=== PATIENT | female | born 1980 | race American Indian/Alaskan Native ===

== ENCOUNTER 2017-08-16 13:19 | Emergency (ER) | payer MEDICAID ==
[2017-08-16] MEDS ORDERED: TORADOL IM ONE (15:45)
--- NOTE | 2017-08-16 15:45 | Emergency Department Report ---
Blank Doc - Documentation Documentation: Patient is a 37-year-old female who is presenting with pain in her back , arms and legs mostly on the right side has been present for approximately a week. Patient states has been no trauma. Patient saw a neurologist who stated that he didn't know what her pain was coming from she has a history of migraines but is not having any headaches currently. Discussed with patient that we would check some basic lab studies as well as a CK that most likely she'll have to see a primary care physician to be tested for lupus and other inflammatory conditions
[2017-08-16 16:25] LABS: Bacteria,Urine 1+ /HPF (Negative); Bilirubin,Urine NEG (Negative); Blood,Urine NEG (Negative); Color,Urine Yellow (Yellow); HCG Qualitative,Urine Negative (Negative); Mucus,Urine 3+ /HPF; Protein,Urine <15 mg/dL mg/dL (Negative)
[2017-08-16 16:29] LABS: BUN/Creatinine Ratio 13; Basophils % (Auto) 1.1 % (0.0-1.8); Blood Urea Nitrogen 8 mg/dL (7-17); Calcium 8.8 mg/dL (8.4-10.2); Eosinophils # (Auto) 0.1 K/mm3 (0.0-0.4); Eosinophils % (Auto) 2.6 % (0.0-4.3); Hematocrit 37.9 % (30.3-42.9); Hemoglobin 12.4 gm/dl (10.1-14.3); Hemolysis Index 5; Lymphocytes # (Auto) 1.2 K/mm3 (1.2-5.4); Lymphocytes % (Auto) 31.4 % (13.4-35.0); Mean Corpuscular HGB Conc 33 % (30-34); Mean Corpuscular Hemoglobin 30 pg (28-32); Mean Corpuscular Volume 93 fl (79-97); Monocytes # (Auto) 0.3 K/mm3 (0.0-0.8); Monocytes % (Auto) 6.6 % (0.0-7.3); Platelet Count 186 K/mm3 (140-440); Red Blood Count 4.09 M/mm3 (3.65-5.03)
[2017-08-16] MEDS ORDERED: ZOFRAN ODT PO ONE (16:58)
[2017-08-16] MEDS ORDERED: ZOFRAN ODT ONE (17:00)
--- NOTE | 2017-08-16 17:24 | Cat Scan Report ---
FINAL REPORT PROCEDURE: CT HEAD/BRAIN WO CON TECHNIQUE: Computerized tomography of the head was performed without contrast material. DLP 1147.33 mGy-cm. HISTORY: Headache. COMPARISON: No prior studies are available for comparison. FINDINGS: Skull and scalp: Normal. Paranasal sinuses: Normal. Ventricles and subarachnoid spaces: Normal. Cerebrum: No evidence of hemorrhage, acute infarction or mass . Cerebellum and brainstem: No evidence of hemorrhage, acute infarction or mass. Vasculature: Normal. Comments: None. IMPRESSION: No CT evidence of acute intracranial pathology.
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
--- NOTE | 2017-08-16 19:06 | XRay Report ---
FINAL REPORT PROCEDURE: XR SPINE LUMBOSACRAL 2-3V TECHNIQUE: Lumbar spine radiographs, frontal and lateral views. CPT 27597 HISTORY: Back pain. COMPARISON: No prior studies are available for comparison. FINDINGS: Alignment: Normal. Mild levoscoliosis. Vertebral body heights/Disk spaces: Normal. Small osteophytes and disc space narrowing in the visualized thoracic spine. Fracture(s): None . Facets: Normal . Bone mineralization: Normal . Other: Possible partially visualized right nipple piercing. IMPRESSION: No radiographic evidence of acute abnormality. Mild degenerative change.
[2017-08-17 00:03] VITALS: BP 159/89
== END 2017-08-16 20:00 | disposition home or self-care (01) ==
LOC: ED 13:19
DX: M54.16 Radiculopathy, lumbar region (principal); Z79.82 Long term (current) use of aspirin; I10 Essential (primary) hypertension
CPT/HCPCS: 36415; 70450; 72100; 80048; 81001; 81025; 82550; 85025; 96372; 99284; J1885; Q0162

== ENCOUNTER 2018-09-03 11:41 | Emergency (ER) | payer MEDICAID ==
[2018-09-03] MEDS ORDERED: ASPIRIN PO ONE (11:53)
--- NOTE | 2018-09-03 11:57 | Emergency Department Report ---
Chief Complaint: Chest Pain Stated Complaint: SOB/CHEST PAIN Time Seen by Provider: 09/03/18 11:46 - HPI History of Present Illness: This is a 38 y.o. female that reports left sided chest pain and tingling to fingers for a few hours. cc: left sided chest pain radiating to LUE, and tingling to fingers. - ROS Review of Systems: left sided chest pain. - Exam Vital Signs: Vital Signs 09/03/18 11:53 Temperature 97.9 F Pulse Rate 78 Respiratory 20 Rate Blood Pressure 175/103 O2 Sat by Pulse 100 Oximetry MSE screening note: Focused history and physical exam performed. Due to findings the following was ordered: labs and CXR. ED Disposition for MSE Condition: Stable
[2018-09-03 12:57] LABS: Basophils % (Auto) 1.4 % (0.0-1.8); Eosinophils # (Auto) 0.1 K/mm3 (0.0-0.4); Eosinophils % (Auto) 2.4 % (0.0-4.3); Hematocrit 39.8 % (30.3-42.9); Hemoglobin 13.8 gm/dl (10.1-14.3); Lymphocytes # (Auto) 1.5 K/mm3 (1.2-5.4); Lymphocytes % (Auto) 44.8 % (13.4-35.0); Mean Corpuscular HGB Conc 35 % (30-34); Mean Corpuscular Volume 98 fl (79-97); Monocytes # (Auto) 0.2 K/mm3 (0.0-0.8); Platelet Count 202 K/mm3 (140-440); Red Blood Count 4.06 M/mm3 (3.65-5.03); Red Cell Distribution Width 13.5 % (13.2-15.2)
[2018-09-03 13:13] LABS: BUN/Creatinine Ratio 13; Blood Urea Nitrogen 9 mg/dL (7-17); Calcium 9.1 mg/dL (8.4-10.2); Hemolysis Index 9
--- NOTE | 2018-09-03 13:57 | XRay Report ---
AP CHEST: HISTORY: chest pain AP view of the chest demonstrates a normal mediastinal and cardiac contour with clear lungs and normal bony and soft tissue structures. IMPRESSION: Unremarkable AP chest.
[2018-09-03] MEDS ORDERED: IBUPROFEN PO ONE (14:02)
--- NOTE | 2018-09-03 14:05 | Emergency Department Report ---
ED General Adult HPI - General Chief complaint: Chest Pain Stated complaint: SOB/CHEST PAIN Time Seen by Provider: 09/03/18 11:46 Source: patient Mode of arrival: Ambulatory Limitations: No Limitations - History of Present Illness Initial comments: Patient is a 38-year-old Female who is presenting with chest discomfort. Patient states that early this morning she began having sharp pain in the left chest. Patient also has a headache as well. Patient has bilateral numbness to both her hands, left greater than right. Patient states that she chronically for the last month has had body aches mostly in her shoulders and back. The patient states even Sunday she is unable to stand straight up secondary to pain. Patient saw a neurologist and was told that she did not have any neurological issues. Patient has not seen cardiology or primary care. The patient states that the pain in the chest is with worse with breathing and with movement. Severity scale (0 -10): 8 - Related Data Previous Rx's Medication Instructions Recorded Last Taken Type Aspirin EC [Aspirin Enteric Coated 325 mg PO QDAY #30 tablet 05/20/15 Unknown Rx TAB] hydroCHLOROthiazide [Hctz] 12.5 mg PO QDAY #30 capsule 05/20/15 Unknown Rx Cyclobenzaprine [Flexeril] 10 mg PO BID PRN #10 tablet 08/16/17 Unknown Rx Ibuprofen [Motrin] 600 mg PO Q8H PRN #30 tablet 08/16/17 Unknown Rx methOCARBAMOL [Robaxin TAB] 500 mg PO Q6H PRN #15 tablet 09/03/18 Unknown Rx predniSONE [Deltasone] 10 mg PO .TAPER #21 tab 09/03/18 Unknown Rx traMADol [Ultram] 50 mg PO Q6HR PRN #15 tablet 09/03/18 Unknown Rx Allergies Allergy/AdvReac Type Severity Reaction Status Date / Time No Known Allergies Allergy Verified 08/16/17 13:40 ED Review of Systems ROS: Stated complaint: SOB/CHEST PAIN Other details as noted in HPI Comment: All other systems reviewed and negative ED Past Medical Hx - Past Medical History Previous Medical History?: Yes Hx Hypertension: Yes (PIH with second ) Additional medical history: Fibroids - Surgical History Past Surgical History?: Yes Additional Surgical History: fibroid. left knee - Social History Smoking Status: Current Every Day Smoker Substance Use Type: None - Medications Home Medications: Home Medications Medication Instructions Recorded Confirmed Last Taken Type Aspirin EC [Aspirin Enteric Coated 325 mg PO QDAY #30 tablet 05/20/15 Unknown Rx TAB] hydroCHLOROthiazide [Hctz] 12.5 mg PO QDAY #30 capsule 05/20/15 Unknown Rx Cyclobenzaprine [Flexeril] 10 mg PO BID PRN #10 tablet 08/16/17 Unknown Rx Ibuprofen [Motrin] 600 mg PO Q8H PRN #30 tablet 08/16/17 Unknown Rx methOCARBAMOL [Robaxin TAB] 500 mg PO Q6H PRN #15 tablet 09/03/18 Unknown Rx predniSONE [Deltasone] 10 mg PO .TAPER #21 tab 09/03/18 Unknown Rx traMADol [Ultram] 50 mg PO Q6HR PRN #15 tablet 09/03/18 Unknown Rx ED Physical Exam - General Limitations: No Limitations General appearance: alert, in no apparent distress - Head Head exam: Present: atraumatic, normocephalic - Eye Eye exam: Present: normal appearance - ENT ENT exam: Present: mucous membranes moist - Neck Neck exam: Present: normal inspection - Respiratory Respiratory exam: Present: normal lung sounds bilaterally, chest wall tenderness. Absent: respiratory distress, wheezes, rales, rhonchi, stridor - Cardiovascular Cardiovascular Exam: Present: regular rate, normal rhythm, normal heart sounds. Absent: systolic murmur, diastolic murmur, rubs, gallop - GI/Abdominal GI/Abdominal exam: Present: soft, normal bowel sounds. Absent: distended, tenderness, guarding, rebound, rigid - Extremities Exam Extremities exam: Present: normal inspection - Back Exam Back exam: Present: normal inspection - Neurological Exam Neurological exam: Present: alert, oriented X3 - Psychiatric Psychiatric exam: Present: normal affect, normal mood - Skin Skin exam: Present: warm, dry, intact, normal color. Absent: rash ED Course Vital Signs 09/03/18 09/03/18 11:53 14:44 Temperature 97.9 F Pulse Rate 78 Respiratory 20 16 Rate Blood Pressure 175/103 O2 Sat by Pulse 100 Oximetry ED Medical Decision Making - Lab Data Result diagrams: 09/03/18 12:31 09/03/18 12:31 Lab Results 09/03/18 09/03/18 09/03/18 Range/Units 12:31 12:31 12:31 WBC 3.3 L (4.5-11.0) K/mm3 RBC 4.06 (3.65-5.03) M/mm3 Hgb 13.8 (10.1-14.3) gm/dl Hct 39.8 (30.3-42.9) % MCV 98 H (79-97) fl MCH 34 H (28-32) pg MCHC 35 H (30-34) % RDW 13.5 (13.2-15.2) % Plt Count 202 (140-440) K/mm3 Lymph % (Auto) 44.8 H (13.4-35.0) % [place] % (Auto) 7.0 (0.0-7.3) % Eos % (Auto) 2.4 (0.0-4.3) % Baso % (Auto) 1.4 (0.0-1.8) % Lymph # 1.5 (1.2-5.4) K/mm3 [place] # 0.2 (0.0-0.8) K/mm3 Eos # 0.1 (0.0-0.4) K/mm3 Baso # 0.0 (0.0-0.1) K/mm3 Seg Neutrophils % 44.4 (40.0-70.0) % Seg Neutrophils # 1.5 L (1.8-7.7) K/mm3 D-Dimer (0-234) ng/mlDDU Sodium 138 (137-145) mmol/L Potassium 4.4 (3.6-5.0) mmol/L Chloride 103.7 (98-107) mmol/L Carbon Dioxide 25 (22-30) mmol/L Anion Gap 14 mmol/L BUN 9 (7-17) mg/dL Creatinine 0.7 (0.7-1.2) mg/dL Estimated GFR > 60 ml/min BUN/Creatinine Ratio 13 % Glucose 97 (65-100) mg/dL Calcium 9.1 (8.4-10.2) mg/dL Troponin T < 0.010 (0.00-0.029) ng/mL HCG, Qual Negative (Negative) 09/03/18 09/03/18 Range/Units 14:14 14:14 WBC (4.5-11.0) K/mm3 RBC (3.65-5.03) M/mm3 Hgb (10.1-14.3) gm/dl Hct (30.3-42.9) % MCV (79-97) fl MCH (28-32) pg MCHC (30-34) % RDW (13.2-15.2) % Plt Count (140-440) K/mm3 Lymph % (Auto) (13.4-35.0) % [place] % (Auto) (0.0-7.3) % Eos % (Auto) (0.0-4.3) % Baso % (Auto) (0.0-1.8) % Lymph # (1.2-5.4) K/mm3 [place] # (0.0-0.8) K/mm3 Eos # (0.0-0.4) K/mm3 Baso # (0.0-0.1) K/mm3 Seg Neutrophils % (40.0-70.0) % Seg Neutrophils # (1.8-7.7) K/mm3 D-Dimer < 135.0 (0-234) ng/mlDDU Sodium (137-145) mmol/L Potassium (3.6-5.0) mmol/L Chloride (98-107) mmol/L Carbon Dioxide (22-30) mmol/L Anion Gap mmol/L BUN (7-17) mg/dL Creatinine (0.7-1.2) mg/dL Estimated GFR ml/min BUN/Creatinine Ratio % Glucose (65-100) mg/dL Calcium (8.4-10.2) mg/dL Troponin T < 0.010 (0.00-0.029) ng/mL HCG, Qual (Negative) - EKG Data -: EKG Interpreted by Ne EKG shows normal: sinus rhythm, axis, intervals, QRS complexes, ST-T waves Rate: normal - EKG Data Interpretation: normal EKG - Radiology Data Radiology results: report reviewed (CXR WNL) - Medical Decision Making Patient to be discharged home with follow-up primary care. Patient needs a full panel assessment for lupus and other autoimmune diseases that may be causing her chronic pain syndrome. Patient discharged home with metastases symptomatic relief. Critical care attestation.: If time is entered above; I have spent that time in minutes in the direct care of this critically ill patient, excluding procedure time. ED Disposition Clinical Impression: Myalgia, Atypical chest pain Disposition: TO HOME OR SELFCARE Is pt being admited?: No Does the pt Need Aspirin: No Condition: Stable Instructions: Musculoskeletal Pain (ED) Additional Instructions: Please have your primary care physician order labs for lupus and other autoimmune diseases Referrals: JADA MOONEY MD [Primary Care Provider] - 3-5 Days AMOR MARIA MD [Staff Physician] - 3-5 Days Time of Disposition: 15:26
[2018-09-03 16:27] VITALS: BP 142/92
== END 2018-09-03 16:26 | disposition home or self-care (01) ==
LOC: ED 11:41
DX: R07.89 Other chest pain (principal); M79.18 Myalgia, other site; I10 Essential (primary) hypertension; F17.200 Nicotine dependence, unspecified, uncomplicated
CPT/HCPCS: 36415; 71045; 80048; 84484; 84703; 85025; 85379; 93005; 93010

== ENCOUNTER 2019-04-30 11:59 | Emergency (ER) | payer MEDICAID ==
--- NOTE | 2019-04-30 12:12 | Emergency Department Report ---
Blank Doc - Documentation Documentation: 39-year-old female that presents with CP and SOB. This initial assessment/diagnostic orders/clinical plan/treatment(s) is/are subject to change based on patient's health status, clinical progression and re- assessment by fellow clinical providers in the ED. Further treatment and workup at subsequent clinical providers discretion. Patient/guardians urged not to elope from the ED as their condition may be serious if not clinically assessed and managed. Initial orders include: 1- Patient sent to [facility] for further evaluation and treatment 2- labs 3- CXR 4- EKG
[2019-04-30 13:31] LABS: Basophils % (Auto) 0.3 % (0.0-1.8); Eosinophils # (Auto) 0.1 K/mm3 (0.0-0.4); Eosinophils % (Auto) 1.9 % (0.0-4.3); Hematocrit 43.8 % (30.3-42.9); Hemoglobin 15.1 gm/dl (10.1-14.3); Lymphocytes # (Auto) 1.3 K/mm3 (1.2-5.4); Lymphocytes % (Auto) 37.5 % (13.4-35.0); Mean Corpuscular HGB Conc 35 % (30-34); Mean Corpuscular Volume 98 fl (79-97); Monocytes # (Auto) 0.2 K/mm3 (0.0-0.8); Monocytes % (Auto) 4.6 % (0.0-7.3); Platelet Count 210 K/mm3 (140-440); Red Blood Count 4.47 M/mm3 (3.65-5.03); Red Cell Distribution Width 13.3 % (13.2-15.2)
[2019-04-30 14:05] LABS: BUN/Creatinine Ratio 11; Blood Urea Nitrogen 9 mg/dL (7-17); Calcium 9.4 mg/dL (8.4-10.2); Hemolysis Index 20
--- NOTE | 2019-04-30 14:10 | XRay Report ---
CHEST 2 VIEWS INDICATION: Chest pain and coughing for 5 days. COMPARISON: 09/03/2018 FINDINGS: Support devices: None. Heart: Within normal limits. Lungs/pleura: No acute air space or interstitial disease. No pneumothorax. Additional findings: Nipple piercings are noted. IMPRESSION: Normal chest x-ray. Signer Name: Roger Floyd Jr, MD Signed: 04/30/2019 2:06 PM Workstation Name: [id number]
--- NOTE | 2019-04-30 15:31 | Cat Scan Report ---
CT HEAD WITHOUT CONTRAST INDICATION / CLINICAL INFORMATION: dizziness, headache. TECHNIQUE: Axial imaging performed from the skull apex through the skull base without the use of cont rast. Sagittal and coronal reformatted images. All CT scans at this location are performed using CT dose reduction for ALARA by means of automated exposure control. COMPARISON: None available. FINDINGS: CEREBRAL PARENCHYMA: No significant abnormality. No acute territorial infarct. HEMORRHAGE: None. EXTRA-AXIAL SPACES: Normal in size and morphology for the patient's age. VENTRICULAR SYSTEM: Normal in size and morphology for the patient's age. MIDLINE SHIFT OR HERNIATION: None. CEREBELLUM / BRAINSTEM: No significant abnormality. CALVARIUM: No significant abnormality. ORBITS: Normal as visualized. PARANASAL SINUSES / MASTOID AIR CELLS: Normal as visualized. SOFT TISSUES of HEAD: No significant abnormality. ADDITIONAL FINDINGS: None. IMPRESSION: No acute intracranial abnormality. Signer Name: Roger Floyd Jr, MD Signed: 04/30/2019 3:27 PM Workstation Name: [id number]
[2019-04-30] MEDS ORDERED: FAMOTIDINE 20 MG TAB PO ONE (15:52)
[2019-04-30] MEDS ORDERED: ACETAMINOPHEN 325 MG TAB PO ONE (15:52)
[2019-04-30] MEDS ORDERED: SUCRALFATE 1 GM/10 ML ORAL LIQD PO ONE (15:52)
--- NOTE | 2019-04-30 15:53 | Emergency Department Report ---
ED General Adult HPI - General Chief complaint: Dyspnea/Respdistress Stated complaint: SOB/DIZZINESS Time Seen by Provider: 04/30/19 12:10 Source: patient, RN notes reviewed Mode of arrival: Ambulatory Limitations: No Limitations - History of Present Illness Initial comments: During the history and physical examination, I am gyro mechanic and escorted by dagoberto Suh This is a 39-year-old female. This patient is not known to this provider previ ously. The patient had a cardiac catheterization at this hospital May 2015, which was negative for significant disease. The patient states that she does not have a primary care doctor locally. She states that she is not has not delivered her given within the past 6 weeks. She presents to the ER with a complaint of inability to take a "full deep breath." This has been going on for 1 day. She denies DVT and pulmonary embolism risk factors. She describes a sensation of dizziness which is described as her head feeling woozy, and lightheaded. However, she's not had any loss of consciousness. She currently does not have chest pain that radiates anywhere. She denies illegal drug use. She denies urinary symptoms. She denies additional complaints. 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 -: Gradual, hour(s) Location: chest Radiation: non-radiation Quality: aching Consistency: intermittent Improves with: none Worsens with: none - Related Data Previous Rx's Medication Instructions Recorded Last Taken Type Aspirin EC 325 mg PO QDAY #30 tablet 05/20/15 Unknown Rx hydroCHLOROthiazide [Hctz] 12.5 mg PO QDAY #30 capsule 05/20/15 Unknown Rx Cyclobenzaprine [Flexeril] 10 mg PO BID PRN #10 tablet 08/16/17 Unknown Rx Ibuprofen [Motrin] 600 mg PO Q8H PRN #30 tablet 08/16/17 Unknown Rx methOCARBAMOL [Robaxin TAB] 500 mg PO Q6H PRN #15 tablet 09/03/18 Unknown Rx predniSONE [Deltasone] 10 mg PO .TAPER #21 tab 09/03/18 Unknown Rx traMADoL [Ultram] 50 mg PO Q6HR PRN #15 tablet 09/03/18 Unknown Rx Allergies Allergy/AdvReac Type Severity Reaction Status Date / Time No Known Allergies Allergy Verified 03/01/18 13:40 ED Review of Systems ROS: Stated complaint: SOB/DIZZINESS Other details as noted in HPI Constitutional: denies: fever Eyes: denies: eye discharge, vision change ENT: denies: congestion Respiratory: denies: wheezing Cardiovascular: chest pain, palpitations, syncope (patient complains of near syncope, however, has not lost consciousness) Gastrointestinal: denies: nausea, vomiting Genitourinary: denies: dysuria Musculoskeletal: denies: back pain Skin: denies: lesions Neurological: weakness Psychiatric: anxiety Hematological/Lymphatic: denies: easy bleeding ED Past Medical Hx - Past Medical History Previous Medical History?: Yes Hx Hypertension: Yes (PIH with second ) Additional medical history: Fibroids - Surgical History Past Surgical History?: Yes Additional Surgical History: fibroid. left knee - Social History Smoking Status: Never Smoker Substance Use Type: None - Medications Home Medications: Home Medications Medication Instructions Recorded Confirmed Last Taken Type Aspirin EC 325 mg PO QDAY #30 tablet 05/20/15 Unknown Rx hydroCHLOROthiazide [Hctz] 12.5 mg PO QDAY #30 capsule 05/20/15 Unknown Rx Cyclobenzaprine [Flexeril] 10 mg PO BID PRN #10 tablet 08/16/17 Unknown Rx Ibuprofen [Motrin] 600 mg PO Q8H PRN #30 tablet 08/16/17 Unknown Rx methOCARBAMOL [Robaxin TAB] 500 mg PO Q6H PRN #15 tablet 09/03/18 Unknown Rx predniSONE [Deltasone] 10 mg PO .TAPER #21 tab 09/03/18 Unknown Rx traMADoL [Ultram] 50 mg PO Q6HR PRN #15 tablet 09/03/18 Unknown Rx ED Physical Exam - General Limitations: No Limitations General appearance: alert, in no apparent distress - Head Head exam: Present: atraumatic, normocephalic - Eye Eye exam: Present: normal appearance, EOMI, other (visual acuity intact to finger counting, color perception, reading at a close distance). Absent: nystagmus - ENT ENT exam: Present: normal exam, normal orophraynx, mucous membranes moist, normal external ear exam - Neck Neck exam: Present: normal inspection, full ROM. Absent: tenderness, meningismus - Respiratory Respiratory exam: Present: normal lung sounds bilaterally. Absent: respiratory distress - Cardiovascular Cardiovascular Exam: Present: regular rate, normal rhythm, normal heart sounds. Absent: bradycardia, tachycardia, irregular rhythm, systolic murmur, diastolic murmur, rubs, gallop - GI/Abdominal GI/Abdominal exam: Present: soft. Absent: distended, tenderness, guarding, rebound, rigid, pulsatile mass - Extremities Exam Extremities exam: Present: normal inspection, full ROM, other (2+ pulses noted in the bilateral upper, lower extremities. There is no long bone tenderness. Musculoskeletal compartments are soft. The pelvis is stable.). Absent: pedal edema, joint swelling, calf tenderness - Back Exam Back exam: Present: normal inspection. Absent: tenderness, CVA tenderness (R), CVA tenderness (L), paraspinal tenderness, vertebral tenderness - Neurological Exam Neurological exam: Present: alert, oriented X3, normal gait (there is no past- pointing. There is normal [id number]. There is normal gait. There is normal tandem gait. There is negative pronator drift.), other (there is no facial droop. The tongue is midline. Extraocular movements are intact bilaterally. P atient speaking in full complete sentences. Shoulder shrug is intact bilaterally. Hearing is grossly intact bilaterally. Visual acuity intact to finger counting and color perception at a close distance. 5/5 strength 4 extremities. Sensation intact to light touch in 4 extremities.). Absent: motor sensory deficit - Psychiatric Psychiatric exam: Present: anxious - Skin Skin exam: Present: warm, dry, intact, normal color. Absent: rash ED Course Vital Signs 04/30/19 04/30/19 04/30/19 12:14 13:28 14:45 Temperature 98.6 F Pulse Rate 76 67 Respiratory 18 20 Rate Blood Pressure 182/107 Blood Pressure 175/116 [Right] O2 Sat by Pulse 99 100 100 Oximetry 04/30/19 04/30/19 04/30/19 15:53 15:54 15:55 Temperature Pulse Rate 59 L 58 L 59 L Respiratory 14 11 L 9 L Rate Blood Pressure 177/99 177/99 Blood Pressure [Right] O2 Sat by Pulse 100 Oximetry 04/30/19 04/30/19 04/30/19 15:57 15:59 16:00 Temperature Pulse Rate 60 58 L 56 L Respiratory 12 11 L 11 L Rate Blood Pressure 177/99 177/99 168/102 Blood Pressure [Right] O2 Sat by Pulse 100 100 100 Oximetry 11/04/30/19 04/30/19 16:01 16:03 16:05 Temperature Pulse Rate 59 L 76 62 Respiratory 9 L 12 12 Rate Blood Pressure 168/102 168/102 168/102 Blood Pressure [Right] O2 Sat by Pulse 100 100 100 Oximetry 04/30/19 04/30/19 04/30/19 16:07 16:09 16:11 Temperature Pulse Rate 67 61 62 Respiratory 10 L 12 13 Rate Blood Pressure 168/102 168/102 168/102 Blood Pressure [Right] O2 Sat by Pulse 100 100 99 Oximetry 04/30/19 04/30/19 04/30/19 16:13 16:15 16:17 Temperature Pulse Rate 65 62 61 Respiratory 16 16 15 Rate Blood Pressure 168/102 168/102 168/102 Blood Pressure [Right] O2 Sat by Pulse 99 100 100 Oximetry 04/30/19 04/30/19 04/30/19 16:19 16:21 16:23 Temperature Pulse Rate 56 L 57 L 60 Respiratory 13 15 12 Rate Blood Pressure 168/102 168/102 168/102 Blood Pressure [Right] O2 Sat by Pulse 100 100 100 Oximetry 04/30/19 04/30/19 04/30/19 16:25 16:27 16:29 Temperature Pulse Rate 57 L 64 60 Respiratory 13 13 14 Rate Blood Pressure 168/102 168/102 168/102 Blood Pressure [Right] O2 Sat by Pulse 100 98 100 Oximetry 04/30/19 04/30/19 04/30/19 16:31 16:33 16:35 Temperature Pulse Rate 60 58 L 61 Respiratory 11 L 11 L 13 Rate Blood Pressure 168/102 168/102 168/102 Blood Pressure [Right] O2 Sat by Pulse 100 100 100 Oximetry 04/30/19 04/30/19 04/30/19 16:53 16:55 16:57 Temperature Pulse Rate 83 62 64 Respiratory 18 16 15 Rate Blood Pressure 168/102 168/102 168/102 Blood Pressure [Right] O2 Sat by Pulse 100 100 100 Oximetry 04/30/19 04/30/19 04/30/19 17:07 17:11 17:13 Temperature Pulse Rate 60 63 64 Respiratory 17 12 12 Rate Blood Pressure 178/101 182/100 183/111 Blood Pressure [Right] O2 Sat by Pulse 100 100 100 Oximetry - Reevaluation(s) Reevaluation #1: 04/30/19 17:23 Differential diagnosis, including but not limited to: Orthostasis, vagal event, structural cardiac disease, acute coronary syndrome, pneumonia, GERD, gastritis, hiatal hernia, pulmonary embolism Assessment and plan: 39-year-old female with no pulmonary embolism or DVT risk factors, low risk by well's criteria, perc negative, EKG unremarkable/unchanged 2, low risk for major adverse cardiac event as per the heart score, troponin negative 2, negative cardiac catheterization in 2015, with nonspecific pain with inspiration, and sensation of lightheadedness and dizziness. She is afebrile with reassuring vital signs with the exception of incidental elevated blood pressure. Please reference the [employer] clinical policy on hypertension which is not acutely symptomatically or decompensated. She is initially anxious during my evaluation, however currently, she is pleasant, calm and cooperative, and noted to be playing with a cellular phone in her room. This [facility] has a policy whereby patients who are at low risk for major adverse cardiac event may obtain an expedited outpatient follow-up with our local cardiology practices. All of her laboratory studies are unremarkable, however, a d-dimer was sent and is pending at this time. Reevaluation #2: 04/30/19 17:26 Troponin negative 2. D-dimer negative. EKG unchanged 2. Vital signs remained fairly unremarkable. Patient medically suitable to follow-up as an outpatient. ED Medical Decision Making - Lab Data Result diagrams: 04/30/19 12:51 04/30/19 12:51 Vital Signs 04/30/19 04/30/19 04/30/19 12:14 13:28 14:45 Temperature 98.6 F Pulse Rate 76 67 Respiratory 18 20 Rate Blood Pressure 182/107 Blood Pressure 175/116 [Right] O2 Sat by Pulse 99 100 100 Oximetry 04/30/19 04/30/19 04/30/19 15:53 15:54 15:55 Temperature Pulse Rate 59 L 58 L 59 L Respiratory 14 11 L 9 L Rate Blood Pressure 177/99 177/99 Blood Pressure [Right] O2 Sat by Pulse 100 Oximetry 04/30/19 04/30/19 04/30/19 15:57 15:59 16:00 Temperature Pulse Rate 60 58 L 56 L Respiratory 12 11 L 11 L Rate Blood Pressure 177/99 177/99 168/102 Blood Pressure [Right] O2 Sat by Pulse 100 100 100 Oximetry 04/30/19 04/30/19 04/30/19 16:01 16:03 16:05 Temperature Pulse Rate 59 L 76 62 Respiratory 9 L 12 12 Rate Blood Pressure 168/102 168/102 168/102 Blood Pressure [Right] O2 Sat by Pulse 100 100 100 Oximetry 04/30/19 04/30/19 04/30/19 16:07 16:09 16:11 Temperature Pulse Rate 67 61 62 Respiratory 10 L 12 13 Rate Blood Pressure 168/102 168/102 168/102 Blood Pressure [Right] O2 Sat by Pulse 100 100 99 Oximetry 04/30/19 04/30/19 04/30/19 16:13 16:15 16:17 Temperature Pulse Rate 65 62 61 Respiratory 16 16 15 Rate Blood Pressure 168/102 168/102 168/102 Blood Pressure [Right] O2 Sat by Pulse 99 100 100 Oximetry 04/30/19 04/30/19 04/30/19 16:19 16:21 16:23 Temperature Pulse Rate 56 L 57 L 60 Respiratory 13 15 12 Rate Blood Pressure 168/102 168/102 168/102 Blood Pressure [Right] O2 Sat by Pulse 100 100 100 Oximetry 04/30/19 04/30/19 04/30/19 16:25 16:27 16:29 Temperature Pulse Rate 57 L 64 60 Respiratory 13 13 14 Rate Blood Pressure 168/102 168/102 168/102 Blood Pressure [Right] O2 Sat by Pulse 100 98 100 Oximetry 04/30/19 04/30/19 04/30/19 16:31 16:33 16:35 Temperature Pulse Rate 60 58 L 61 Respiratory 11 L 11 L 13 Rate Blood Pressure 168/102 168/102 168/102 Blood Pressure [Right] O2 Sat by Pulse 100 100 100 Oximetry 04/30/19 04/30/19 04/30/19 16:53 16:55 16:57 Temperature Pulse Rate 83 62 64 Respiratory 18 16 15 Rate Blood Pressure 168/102 168/102 168/102 Blood Pressure [Right] O2 Sat by Pulse 100 100 100 Oximetry 04/30/19 04/30/19 04/30/19 17:07 17:11 17:13 Temperature Pulse Rate 60 63 64 Respiratory 17 12 12 Rate Blood Pressure 178/101 182/100 183/111 Blood Pressure [Right] O2 Sat by Pulse 100 100 100 Oximetry Labs 04/30/19 04/30/1919 12:51 12:51 12:51 WBC 3.4 L RBC 4.47 Hgb 15.1 H Hct 43.8 H MCV 98 H MCH 34 H MCHC 35 H RDW 13.3 Plt Count 210 Lymph % (Auto) 37.5 H Atkinson % (Auto) 4.6 Eos % (Auto) 1.9 Baso % (Auto) 0.3 Lymph # 1.3 Atkinson # 0.2 Eos # 0.1 Baso # 0.0 Seg Neutrophils % 55.7 Seg Neutrophils # 1.9 D-Dimer Sodium 141 Potassium 3.9 Chloride 104.3 Carbon Dioxide 23 Anion Gap 18 BUN 9 Creatinine 0.8 Estimated GFR > 60 BUN/Creatinine Ratio 11 Glucose 118 H Calcium 9.4 Magnesium Total Creatine Kinase Troponin T < 0.010 HCG, Qual Negative 04/30/19 04/30/19 16:14 16:14 WBC RBC Hgb Hct MCV MCH MCHC RDW Plt Count Lymph % (Auto) Atkinson % (Auto) Eos % (Auto) Baso % (Auto) Lymph # Atkinson # Eos # Baso # Seg Neutrophils % Seg Neutrophils # D-Dimer < 135.00 Sodium Potassium Chloride Carbon Dioxide Anion Gap BUN Creatinine Estimated GFR BUN/Creatinine Ratio Glucose Calcium Magnesium 2.10 Total Creatine Kinase 226 H Troponin T < 0.010 HCG, Qual - EKG Data -: EKG Interpreted by Hi - EKG Data 04/30/19 17:26 EKG #1 shows a sinus rhythm, 62 beats for minute, normal axis, normal intervals, unremarkable EKG, borderline high left ventricular voltage, the EKG is not consistent with ST elevation myocardial infarction. EKG #2 was unchanged from prior. Neither EKG consistent with STEMI - Radiology Data Radiology results: report reviewed, image reviewed X-ray the chest is negative for acute disease. Noncontrast CT scan of the brain is negative for acute disease Critical care attestation.: If time is entered above; I have spent that time in minutes in the direct care of this critically ill patient, excluding procedure time. ED Disposition Clinical Impression: Elevated blood pressure reading, Chest discomfort Disposition: DC-01 TO HOME OR SELFCARE Is pt being admited?: No Does the pt Need Aspirin: No Condition: Stable Additional Instructions: Patient may take [id number] Tylenol, 650 mg with food, every 4 hours, alternating with Motrin, 600 mg with food, every 6 hours as needed for pain. Recommend following up with an outpatient medical device sales within the next 3-5 days. Recommend following up with an outpatient primary care doctor within the next week. Patient found to have slightly elevated blood pressure today, and this should be rechecked by either cardiology or primary care. In the meantime, recommend 7-8 hours of good-quality uninterrupted sleep each night, exercise and physical activity as tolerated, consumption of plenty of lean protein, fiber, vegetables, and avoidance of simple carbohydrates, sugary drinks, and fried foods. Return to the emergency room right away with new, worsened, different symptoms, or symptoms not present on the initial emergency room evaluation. Referrals: CLAUDETTE MORENO MD [Primary Care Provider] - 3-5 Days [facility] [Provider Group] - 3-5 Days FLAQUITO COREA MD [Staff Physician] - 3-5 Days
[2019-04-30 17:25] VITALS: BP 183/111
[2019-04-30 18:28] LABS: Bacteria,Urine 1+ /HPF (Negative); Bilirubin,Urine NEG (Negative); Blood,Urine SM (Negative); Color,Urine Yellow (Yellow); Mucus,Urine 3+ /HPF; Protein,Urine <15 mg/dL mg/dL (Negative)
[2019-04-30 18:46] LABS: Amphetamine Screen,Urine PRESUMPTIVE NEGATIVE; Benzodiazepines Screen,Urine PRESUMPTIVE NEGATIVE; Cocaine Screen,Urine PRESUMPTIVE NEGATIVE; Methadone Screen,Urine PRESUMPTIVE NEGATIVE; Opiate Screen,Urine PRESUMPTIVE NEGATIVE
[2019-04-30 19:01] LABS: Cannabinoid Screen,Urine PRESUMPTIVE POSITIVE
== END 2019-04-30 18:10 | disposition home or self-care (01) ==
LOC: ED 11:59
DX: I10 Essential (primary) hypertension (principal); R07.9 Chest pain, unspecified
CPT/HCPCS: 36415; 70450; 71046; 80048; 80307; 81001; 82550; 83735; 84484; 84703; 85025; 85379; 87086; 93005; 93010

== ENCOUNTER 2020-01-06 13:35 | Emergency (ER) | payer BC, MEDICAID ==
--- NOTE | 2020-01-06 15:31 | Event Note ---
ED Screening Note ED Screening Note: LLQ PAIN NAUSEA NO VOMITING NO DIARRHEA NO FEVER OR CHILLS HX OVARIAN CYST NO DC NOVAG BLEEDING PT WILL NOT WALK This initial assessment/diagnostic orders/clinical plan/treatment(s) is/are subject to change based on patients health status, clinical progression and re- assessment by fellow clinical providers in the ED. Further treatment and workup at subsequent clinical providers discretion. Patient/guardian urged not to elope from the ED as their condition may be serious if not clinically assessed and managed. Initial orders include: LABS UA
[2020-01-06 16:16] LABS: Bilirubin,Urine NEG (Negative); Blood,Urine MOD (Negative); Color,Urine Yellow (Yellow); Mucus,Urine FEW /HPF; Protein,Urine <15 mg/dL mg/dL (Negative); Urobilinogen,Urine < 2.0 mg/dL (<2.0); WBC,Urine < 1.0 /HPF (0.0-6.0)
[2020-01-06 16:21] LABS: HCG Qualitative,Urine Negative (Negative)
[2020-01-06 16:56] LABS: Hematocrit 44.1 % (30.3-42.9); Hemoglobin 14.6 gm/dl (10.1-14.3); Mean Corpuscular HGB Conc 33 % (30-34); Mean Corpuscular Volume 100 fl (79-97); Platelet Count 183 K/mm3 (140-440); Red Blood Count 4.42 M/mm3 (3.65-5.03); Red Cell Distribution Width 13.7 % (13.2-15.2)
[2020-01-06 17:11] LABS: Alanine Aminotransferase 87 units/L (7-56); Albumin 4.6 g/dL (3.9-5); BUN/Creatinine Ratio 14; Blood Urea Nitrogen 10 mg/dL (7-17); Calcium 9.1 mg/dL (8.4-10.2); Hemolysis Index 3
[2020-01-06] MEDS ORDERED: traMADol 50 MG TAB PO ONE (19:35)
--- NOTE | 2020-01-06 19:40 | Emergency Department Report ---
ED Abdominal Pain HPI - General Chief Complaint: Abdominal Pain Stated Complaint: ABD PAIN PUI?: No Time Seen by Provider: 01/06/20 14:31 Source: EMS Mode of arrival: Ambulatory Limitations: No Limitations - History of Present Illness Initial Comments: This is a 39-year-old female presents to the ED complaining of left lower pelvic pain that began today and worsened in intensity. Patient states last time she felt this pain was about 6 to 8 years ago. Patient states pain is localized to the left pelvic region. Patient noted that she started her last menstrual cycle yesterday. Patient states that pain is sharp and intermittent. She denies fever/chills/nausea vomiting/dysuria/vaginal discharge MD Complaint: abdominal pain -: Sudden Severity scale (0 -10): 10 - Related Data Previous Rx's Medication Instructions Recorded Last Taken Type Aspirin EC [Ecotrin] 325 mg PO QDAY #30 tablet 05/20/15 Unknown Rx hydroCHLOROthiazide [Hctz] 12.5 mg PO QDAY #30 capsule 05/20/15 Unknown Rx Cyclobenzaprine [Flexeril] 10 mg PO BID PRN #10 tablet 08/16/17 Unknown Rx Ibuprofen [Motrin] 600 mg PO Q8H PRN #30 tablet 08/16/17 Unknown Rx methOCARBAMOL [Robaxin TAB] 500 mg PO Q6H PRN #15 tablet 09/03/18 Unknown Rx predniSONE [Deltasone] 10 mg PO .TAPER #21 tab 09/03/18 Unknown Rx traMADoL [Ultram] 50 mg PO Q6HR PRN #15 tablet 09/03/18 Unknown Rx Acetaminophen/Codeine [Tylenol 1 tab PO Q6H PRN #10 tab 07/11/19 Unknown Rx /Codeine # 3 tab] Sulfamethoxazole/Trimethoprim 1 each PO BID 5 Days #10 tablet 07/11/19 Unknown Rx [Bactrim DS TAB] Ibuprofen [Motrin 800 MG tab] 800 mg PO Q8HR PRN #21 tablet 01/06/20 Unknown Rx traMADoL [Ultram 50 MG tab] 50 mg PO Q6H #20 tablet 01/06/20 Unknown Rx Allergies Allergy/AdvReac Type Severity Reaction Status Date / Time No Known Allergies Allergy Verified 01/06/20 14:31 ED Review of Systems ROS: Stated complaint: ABD PAIN Other details as noted in HPI Comment: All other systems reviewed and negative ED Past Medical Hx - Past Medical History Hx Hypertension: Yes (PIH with second ) Additional medical history: Fibroids - Surgical History Additional Surgical History: fibroid. left knee - Social History Smoking Status: Never Smoker Substance Use Type: None - Medications Home Medications: Home Medications Medication Instructions Recorded Confirmed Last Taken Type Aspirin EC [Ecotrin] 325 mg PO QDAY #30 tablet 05/20/15 Unknown Rx hydroCHLOROthiazide [Hctz] 12.5 mg PO QDAY #30 capsule 05/20/15 Unknown Rx Cyclobenzaprine [Flexeril] 10 mg PO BID PRN #10 tablet 08/16/17 Unknown Rx Ibuprofen [Motrin] 600 mg PO Q8H PRN #30 tablet 08/16/17 Unknown Rx methOCARBAMOL [Robaxin TAB] 500 mg PO Q6H PRN #15 tablet 09/03/18 Unknown Rx predniSONE [Deltasone] 10 mg PO .TAPER #21 tab 09/03/18 Unknown Rx traMADoL [Ultram] 50 mg PO Q6HR PRN #15 tablet 09/03/18 Unknown Rx Acetaminophen/Codeine [Tylenol 1 tab PO Q6H PRN #10 tab 07/11/19 Unknown Rx /Codeine # 3 tab] Sulfamethoxazole/Trimethoprim 1 each PO BID 5 Days #10 tablet 07/11/19 Unknown Rx [Bactrim DS TAB] Ibuprofen [Motrin 800 MG tab] 800 mg PO Q8HR PRN #21 tablet 01/06/20 Unknown Rx traMADoL [Ultram 50 MG tab] 50 mg PO Q6H #20 tablet 01/06/20 Unknown Rx ED Physical Exam - General Limitations: No Limitations General appearance: alert, in no apparent distress - Head Head exam: Present: atraumatic, normocephalic - Eye Eye exam: Present: normal appearance - ENT ENT exam: Present: mucous membranes moist - Neck Neck exam: Present: normal inspection - Respiratory Respiratory exam: Present: normal lung sounds bilaterally. Absent: respiratory distress - Cardiovascular Cardiovascular Exam: Present: regular rate, normal rhythm. Absent: systolic murmur, diastolic murmur, rubs, gallop - GI/Abdominal GI/Abdominal exam: Present: soft, tenderness (Mild tenderness to the left pelvic region, no upper abdominal tenderness), normal bowel sounds. Absent: guarding, rebound, mass - Extremities Exam Extremities exam: Present: normal inspection - Back Exam Back exam: Present: normal inspection - Neurological Exam Neurological exam: Present: alert, oriented X3 - Psychiatric Psychiatric exam: Present: normal affect, normal mood - Skin Skin exam: Present: warm, dry, intact, normal color. Absent: rash ED Course Vital Signs 01/06/20 01/06/20 14:35 15:32 Temperature 98.1 F Pulse Rate 58 L Respiratory 16 18 Rate Blood Pressure 150/91 [Left] O2 Sat by Pulse 100 99 Oximetry ED Medical Decision Making - Lab Data Result diagrams: 01/06/20 16:39 01/06/20 16:39 Laboratory Last Values WBC 3.9 K/mm3 (4.5-11.0) L 01/06/20 16:39 RBC 4.42 M/mm3 (3.65-5.03) 01/06/20 16:39 Hgb 14.6 gm/dl (10.1-14.3) H 01/06/20 16:39 Hct 44.1 % (30.3-42.9) H 01/06/20 16:39 MCV 100 fl (79-97) H 01/06/20 16:39 MCH 33 pg (28-32) H 01/06/20 16:39 MCHC 33 % (30-34) 01/06/20 16:39 RDW 13.7 % (13.2-15.2) 01/06/20 16:39 Plt Count 183 K/mm3 (140-440) 01/06/20 16:39 Sodium 138 mmol/L (137-145) 01/06/20 16:39 Potassium 3.8 mmol/L (3.6-5.0) 01/06/20 16:39 Chloride 102.8 mmol/L (98-107) 01/06/20 16:39 Carbon Dioxide 24 mmol/L (22-30) 01/06/20 16:39 Anion Gap 15 mmol/L 01/06/20 16:39 BUN 10 mg/dL (7-17) 01/06/20 16:39 Creatinine 0.7 mg/dL (0.7-1.2) 01/06/20 16:39 Estimated GFR > 60 ml/min 01/06/20 16:39 BUN/Creatinine Ratio 14 % 01/06/20 16:39 Glucose 111 mg/dL (65-100) H 01/06/20 16:39 Calcium 9.1 mg/dL (8.4-10.2) 01/06/20 16:39 Total Bilirubin 0.40 mg/dL (0.1-1.2) 01/06/20 16:39 AST 49 units/L (5-40) H 01/06/20 16:39 ALT 87 units/L (7-56) H 01/06/20 16:39 Alkaline Phosphatase 63 units/L (35-129) 01/06/20 16:39 Total Protein 7.3 g/dL (6.3-8.2) 01/06/20 16:39 Albumin 4.6 g/dL (3.9-5) 01/06/20 16:39 Albumin/Globulin Ratio 1.7 % 01/06/20 16:39 Lipase 15 units/L (13-60) 01/06/20 16:39 Urine Color Yellow (Yellow) 01/06/20 14:58 Urine Turbidity Clear (Clear) 01/06/20 14:58 Urine pH 7.0 (5.0-7.0) 01/06/20 14:58 Ur Specific [place] 1.014 (1.003-1.030) 01/06/20 14:58 Urine Protein <15 mg/dl mg/dL (Negative) 01/06/20 14:58 Urine Glucose (UA) Neg mg/dL (Negative) 01/06/20 14:58 Urine Ketones Neg mg/dL (Negative) 01/06/20 14:58 Urine Blood Mod (Negative) 01/06/20 14:58 Urine Nitrite Neg (Negative) 01/06/20 14:58 Urine Bilirubin Neg (Negative) 01/06/20 14:58 Urine Urobilinogen < 2.0 mg/dL (<2.0) 01/06/20 14:58 Ur Leukocyte Esterase Neg (Negative) 01/06/20 14:58 Urine WBC (Auto) < 1.0 /HPF (0.0-6.0) 01/06/20 14:58 Urine RBC (Auto) 6.0 /HPF (0.0-6.0) 01/06/20 14:58 U Epithel Cells (Auto) 3.0 /HPF (0-13.0) 01/06/20 14:58 Urine Mucus Few /HPF 01/06/20 14:58 Urine HCG, Qual Negative (Negative) 01/06/20 14:58 - Radiology Data Radiology results: report reviewed, image reviewed PELVIC ULTRASOUND HISTORY: Left pelvic pain. FINDINGS: Imaging was performed by transabdominally and endovaginally. The uterus measures 7.8 x 5.4 x 6.3 cm. Endometrial stripe measures 10.9 cm. 3 fibroids are present with the largest at the fundus anteriorly measuring 2.5 cm. Right ovary measures 2.9 x 2 x 2.2 cm. Left ovary measures 3.3 x 1.6 x 2.2 cm. Negative for adnexal mass or fluid. Ovaries demonstrate flow. IMPRESSION: 1. Prominent endometrial stripe. 2. 3 small uterine fibroids. Signer Name: John De La Cruz MD Signed: 01/06/2020 9:15 PM Workstation Name: [id number] Transcribed By: MOUNA Dictated By: John De La Cruz MD Electronically Authenticated By: John De La Cruz MD Signed Date/Time: 01/06/202114 - Medical Decision Making 39-year-old female presents with left-sided pelvic pain. Patient received tramadol for pain in the ED. All labs are within normal limits. Ultrasound report shows, see report above. Discussed with patient to follow-up with [facility]. Pain subsided prior to discharge. Vital signs are normal patient is in no acute distress. Critical care attestation.: If time is entered above; I have spent that time in minutes in the direct care of this critically ill patient, excluding procedure time. ED Disposition Clinical Impression: Uterine fibroid, Dysmenorrhea Disposition: TO HOME OR SELFCARE Is pt being admited?: No Does the pt Need Aspirin: No Condition: Stable Instructions: Abdominal Pain (ED), Uterine Fibroids (ED), Dysmenorrhea (ED), Chronic Pelvic Pain in Women (ED) Additional Instructions: Make sure to follow up with the primary care physician as discussed. Take all your medications as you've been prescribed. If you have any worsening symptoms or develop new symptoms please return to ED immediately. Prescriptions: Ibuprofen [Motrin 800 MG tab] 800 mg PO Q8HR PRN #21 tablet PRN Reason: pain traMADoL [Ultram 50 MG tab] 50 mg PO Q6H #20 tablet Referrals: PRIMARY CARE, [Primary Care Provider] - 3-5 Days [facility] [Outside] - 3-5 Days [facility] [Outside] - 3-5 Days [facility] [Provider Group] - 3-5 Days Forms: Work/School Release Form(ED) Time of Disposition: 21:31
--- NOTE | 2020-01-06 21:19 | Ultrasound Report ---
PELVIC ULTRASOUND HISTORY: Left pelvic pain. FINDINGS: Imaging was performed by transabdominally and endovaginally. The uterus measures 7.8 x 5.4 x 6.3 cm. Endometrial stripe measures 10.9 cm. 3 fibroids are present w ith the largest at the fundus anteriorly measuring 2.5 cm. Right ovary measures 2.9 x 2 x 2.2 cm. Left ovary measures 3.3 x 1.6 x 2.2 cm. Negative for adnexal m ass or fluid. Ovaries demonstrate flow. IMPRESSION: 1. Prominent endometrial stripe. 2. 3 small uterine fibroids. Signer Name: John De La Cruz MD Signed: 01/06/2020 9:15 PM Workstation Name: [id number]
[2020-01-06 21:42] VITALS: BP 149/85
== END 2020-01-06 21:41 | disposition home or self-care (01) ==
LOC: ED 13:35
DX: D25.9 Leiomyoma of uterus, unspecified (principal); N94.6 Dysmenorrhea, unspecified; I10 Essential (primary) hypertension; Z79.82 Long term (current) use of aspirin; Z79.899 Other long term (current) drug therapy; Z98.890 Other specified postprocedural states
CPT/HCPCS: 36415; 76830; 76856; 80053; 81001; 81025; 83690; 85027

== ENCOUNTER 2020-07-09 18:09 | Emergency (ER) | payer BC, MEDICAID ==
[2020-07-09 19:06] VITALS: BP 146/87
--- NOTE | 2020-07-09 19:09 | Emergency Department Report ---
ED General Adult HPI - General Chief complaint: Medical Clearance Stated complaint: NEEDS RHOGAM INJ; REFFERED Time Seen by Provider: 07/09/20 19:06 Source: patient Mode of arrival: Ambulatory Limitations: No Limitations - History of Present Illness Initial comments: 40-year-old -[place]aro[place] female patient presents for RhoGam shot today. Patient states she was sent by her [employer] for blood being found in her urine. She states her [employer] MANAGER is also treating her for a UTI. She denies any abdominal pain, vaginal bleeding, fever/chills/sweats, or other complaints. - Related Data Previous Rx's Medication Instructions Recorded Last Taken Type Aspirin EC [Ecotrin] 325 mg PO QDAY #30 tablet 05/20/15 Unknown Rx hydroCHLOROthiazide [Hctz] 12.5 mg PO QDAY #30 capsule 05/20/15 Unknown Rx Cyclobenzaprine [Flexeril] 10 mg PO BID PRN #10 tablet 08/16/17 Unknown Rx Ibuprofen [Motrin] 600 mg PO Q8H PRN #30 tablet 08/16/17 Unknown Rx methOCARBAMOL [Robaxin TAB] 500 mg PO Q6H PRN #15 tablet 09/03/18 Unknown Rx predniSONE 10 mg PO .TAPER #21 tab 09/03/18 Unknown Rx traMADoL [Ultram] 50 mg PO Q6HR PRN #15 tablet 09/03/18 Unknown Rx Acetaminophen/Codeine [Tylenol 1 tab PO Q6H PRN #10 tab 07/11/19 Unknown Rx /Codeine # 3 tab] Sulfamethoxazole/Trimethoprim 1 each PO BID 5 Days #10 tablet 07/11/19 Unknown Rx [Bactrim DS TAB] Ibuprofen [Motrin 800 MG tab] 800 mg PO Q8HR PRN #21 tablet 01/06/20 Unknown Rx traMADoL [Ultram 50 MG tab] 50 mg PO Q6H #20 tablet 01/06/20 Unknown Rx Allergies Allergy/AdvReac Type Severity Reaction Status Date / Time No Known Allergies Allergy Verified 01/06/20 14:31 ED Review of Systems ROS: Stated complaint: NEEDS RHOGAM INJ;MD REFFERED Other details as noted in HPI Constitutional: denies: chills, fever Respiratory: denies: shortness of breath Cardiovascular: denies: chest pain Gastrointestinal: denies: abdominal pain, nausea, vomiting Genitourinary: denies: urgency, abnormal menses Skin: denies: change in color Neurological: denies: headache Hematological/Lymphatic: denies: easy bleeding, easy bruising ED Past Medical Hx - Past Medical History Previous Medical History?: Yes Hx Hypertension: Yes (PIH with second ) Additional medical history: Fibroids - Surgical History Past Surgical History?: Yes Additional Surgical History: fibroid. left knee - Social History Smoking Status: Never Smoker Substance Use Type: None - Medications Home Medications: Home Medications Medication Instructions Recorded Confirmed Last Taken Type Aspirin EC [Ecotrin] 325 mg PO QDAY #30 tablet 05/20/15 Unknown Rx hydroCHLOROthiazide [Hctz] 12.5 mg PO QDAY #30 capsule 05/20/15 Unknown Rx Cyclobenzaprine [Flexeril] 10 mg PO BID PRN #10 tablet 08/16/17 Unknown Rx Ibuprofen [Motrin] 600 mg PO Q8H PRN #30 tablet 08/16/17 Unknown Rx methOCARBAMOL [Robaxin TAB] 500 mg PO Q6H PRN #15 tablet 09/03/18 Unknown Rx predniSONE 10 mg PO .TAPER #21 tab 09/03/18 Unknown Rx traMADoL [Ultram] 50 mg PO Q6HR PRN #15 tablet 09/03/18 Unknown Rx Acetaminophen/Codeine [Tylenol 1 tab PO Q6H PRN #10 tab 07/11/19 Unknown Rx /Codeine # 3 tab] Sulfamethoxazole/Trimethoprim 1 each PO BID 5 Days #10 tablet 07/11/19 Unknown Rx [Bactrim DS TAB] Ibuprofen [Motrin 800 MG tab] 800 mg PO Q8HR PRN #21 tablet 01/06/20 Unknown Rx traMADoL [Ultram 50 MG tab] 50 mg PO Q6H #20 tablet 01/06/20 Unknown Rx ED Physical Exam - General Limitations: No Limitations General appearance: alert, in no apparent distress - Head Head exam: Present: atraumatic, normocephalic - Eye Eye exam: Present: normal appearance - Respiratory Respiratory exam: Absent: respiratory distress - Cardiovascular Cardiovascular Exam: Present: regular rate - GI/Abdominal GI/Abdominal exam: Present: soft. Absent: distended, tenderness, guarding, rebound, rigid - Neurological Exam Neurological exam: Present: alert, oriented X3 - Psychiatric Psychiatric exam: Present: normal affect, normal mood - Skin Skin exam: Present: warm, dry, intact, normal color. Absent: rash ED Course Vital Signs 07/09/20 18:18 Temperature 97.9 F Pulse Rate 90 Respiratory 18 Rate Blood Pressure 146/87 O2 Sat by Pulse 100 Oximetry ED Medical Decision Making - Medical Decision Making 40-year-old -[place]aro[place] female patient presents for RhoGam shot today. Patient states she was sent by her [employer] for blood being found in her urine. She states her [employer]NAGER is also treating her for a UTI. She denies any abdominal pain, vaginal bleeding, fever/chills/sweats, or other complaints. RhoGam given. Patient's blood pressure noted to be mildly elevated recommend follow-up with [employer]GER within 1 week for recheck of blood pressure and further evaluation.-She is well-appearing stable for discharge home. Strict return precautions were discussed in detail with patient who verbalized understanding. Critical care attestation.: If time is entered above; I have spent that time in minutes in the direct care of this critically ill patient, excluding procedure time. ED Disposition Clinical Impression: Encounter for prophylactic administration of RhoGAM, Elevated blood pressure reading Disposition: DC-01 TO HOME OR SELFCARE Is pt being admited?: No Condition: Stable Instructions: Rh0 [D] Immune Globulin injection, Hypertension During Additional Instructions: Please follow up with your OBGYN Provider within 5 days for recheck of your blood pressure
== END 2020-07-09 21:17 | disposition home or self-care (01) ==
LOC: ED 18:09
DX: O23.42 Unspecified infection of urinary tract in pregnancy, second trimester (principal); I10 Essential (primary) hypertension; Z3A.19 19 weeks gestation of pregnancy; Z98.890 Other specified postprocedural states; Z79.1 Long term (current) use of non-steroidal anti-inflammatories (NSAID); Z79.899 Other long term (current) drug therapy
CPT/HCPCS: 86850; 86900; 86901; 96372; 99281; J2790

== ENCOUNTER 2020-10-07 17:31 | Outpatient (CLI) | payer BC, MEDICAID ==
[2020-10-07 18:46] VITALS: BP 128/83
[2020-10-07 19:55] LABS: Bilirubin,Urine NEG (Negative); Blood,Urine NEG (Negative); Color,Urine Yellow (Yellow); Protein,Urine <15 mg/dL mg/dL (Negative); Urobilinogen,Urine < 2.0 mg/dL (<2.0)
== END 2020-10-07 20:35 | disposition home or self-care (01) ==
LOC: TRG 17:31 → APU 17:32 → TRG 20:35
PROVIDERS: ATTEND Obstetrics & Gynecology
DX: Z34.93 Encounter for supervision of normal pregnancy, unspecified, third trimester (principal); Z3A.39 39 weeks gestation of pregnancy
CPT/HCPCS: 59025; 81001

== ENCOUNTER 2020-10-22 19:26 | Outpatient (CLI) | payer BC, MEDICAID ==
[2020-10-22] MEDS ORDERED: LACTATED RINGERS 500 ML IV ONE (19:41)
[2020-10-22 20:03] VITALS: BP 132/79
== END 2020-10-22 20:15 | disposition home or self-care (01) ==
LOC: TRG 19:26 → APU 19:34 → TRG 20:15
PROVIDERS: ATTEND Obstetrics & Gynecology
DX: O09.93 Supervision of high risk pregnancy, unspecified, third trimester (principal); Z3A.34 34 weeks gestation of pregnancy
CPT/HCPCS: 59025

== ENCOUNTER 2020-11-11 13:42 | Outpatient (CLI) | payer BC, MEDICAID ==
[2020-11-11 16:19] LABS: Hematocrit 30.8 % (30.3-42.9); Hemoglobin 10.9 gm/dl (10.1-14.3); Mean Corpuscular HGB Conc 35 % (30-34); Mean Corpuscular Volume 94 fl (79-97); Platelet Count 147 K/mm3 (140-440); Red Blood Count 3.27 M/mm3 (3.65-5.03)
[2020-11-11 16:32] LABS: Bacteria,Urine 2+ /HPF (Negative); Bilirubin,Urine NEG (Negative); Blood,Urine NEG (Negative); Color,Urine Yellow (Yellow); Mucus,Urine 3+ /HPF; Urobilinogen,Urine < 2.0 mg/dL (<2.0)
[2020-11-11 16:41] LABS: Alanine Aminotransferase 7 units/L (7-56); Uric Acid 5.1 mg/dL (3.5-7.6)
[2020-11-11 17:06] VITALS: BP 150/95
== END 2020-11-11 17:38 | disposition home or self-care (01) ==
LOC: TRG 13:42 → APU 13:45 → TRG 17:38
DX: O09.893 Supervision of other high risk pregnancies, third trimester (principal); Z3A.37 37 weeks gestation of pregnancy
CPT/HCPCS: 36415; 59025; 81001; 82565; 83615; 84450; 84460; 84550; 85027

== ENCOUNTER 2020-11-18 21:45 | Inpatient (IN) | payer BC, MEDICAID ==
[2020-11-18] MEDS ORDERED: LIDOCAINE (2%) 20 MG/1 ML VIAL 20 ML MDV INFILTRATI ONE (22:57)
[2020-11-18] MEDS ORDERED: TERBUTALINE 1 MG/1 ML INJ SUB-Q PRN (22:57)
[2020-11-18] MEDS ORDERED: ePHEDrine SULFATE 50 MG/1 ML INJ IV PRN (22:57)
[2020-11-18] MEDS ORDERED: MINERAL OIL 30 ML ORAL LIQD PO PRN (22:57)
[2020-11-18] MEDS ORDERED: BUTORPHANOL 2 MG/1 ML INJ IV PRN ×2 (22:57)
[2020-11-18] MEDS ORDERED: fentaNYL 100 MCG/2 ML INJ IV PRN (22:57)
[2020-11-18] MEDS ORDERED: OXYTOCIN DRIP 30 UNITS/500 ML BAG IV SCH (23:00)
--- NOTE | 2020-11-18 23:26 | History and Physical Report ---
History of Present Illness Date of examination: 11/18/20 Date of admission: 11/18/20 21:45 Chief complaint: "My doctor told me to come to be induced" History of present illness: 40 y/o presents to [facility] @ 38.4 wks for an IOL r/t CHTN. Pt denies VB, UC, LOF, and admits to active FM. She initiated her pnc @ [facility] [place] location @ 8.6 wks. 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 She was comanaged by [facility], and has been noncomplaint with her b/p meds. Surgical hx includes D&C and a tonsillectomy. Family hx of htn and cervical cancer. Her GBS is neg. Past History Past Medical History: hypertension, other (fibroids, AMA, CHTN, polydramnios, rh neg, unilat hydrocele, ) Past Surgical History: tonsillectomy, D&C [employer] History: herpes Family/Genetic History: hypertension, cancer Social history: single, full code - Obstetrical History Expected Date of Delivery: 11/28/20 Actual Gestation: 38 Week(s) 4 Day(s) : 4 Para: 2 Hx # Term Pregnancies: 2 Spontaneous Abortions: 0 Induced : 1 Number of Living Children: 2 Medications and Allergies Allergies Allergy/AdvReac Type Severity Reaction Status Date / Time No Known Allergies Allergy Verified 01/06/20 14:31 Home Medications Medication Instructions Recorded Confirmed Last Taken Type Aspirin EC [Ecotrin] 325 mg PO QDAY #30 tablet 05/20/15 10/07/20 Unknown Rx hydroCHLOROthiazide [Hctz] 12.5 mg PO QDAY #30 capsule 05/20/15 10/07/20 Unknown Rx Cyclobenzaprine [Flexeril] 10 mg PO BID PRN #10 tablet 08/16/17 10/07/20 Unknown Rx Ibuprofen [Motrin] 600 mg PO Q8H PRN #30 tablet 08/16/17 10/07/20 Unknown Rx methOCARBAMOL [Robaxin TAB] 500 mg PO Q6H PRN #15 tablet 09/03/18 10/07/20 Unknown Rx predniSONE 10 mg PO .TAPER #21 tab 09/03/18 10/07/20 Unknown Rx traMADoL [Ultram] 50 mg PO Q6HR PRN #15 tablet 09/03/18 10/07/20 Unknown Rx Acetaminophen/Codeine [Tylenol 1 tab PO Q6H PRN #10 tab 07/11/19 10/07/20 Unknown Rx /Codeine # 3 tab] Sulfamethoxazole/Trimethoprim 1 each PO BID 5 Days #10 tablet 07/11/19 10/07/20 Unknown Rx [Bactrim DS TAB] Ibuprofen [Motrin 800 MG tab] 800 mg PO Q8HR PRN #21 tablet 01/06/20 10/07/20 Unknown Rx traMADoL [Ultram 50 MG tab] 50 mg PO Q6H #20 tablet 01/06/20 10/07/20 Unknown Rx Active Meds: Active Medications Butorphanol Tartrate (Butorphanol 2 Mg/1 Ml Inj) 2 mg IV Q2H PRN PRN Reason: Pain , Severe (7-10) Butorphanol Tartrate (Butorphanol 2 Mg/1 Ml Inj) 1 mg IV Q2H PRN PRN Reason: Pain, Moderate(4-6) LABOR PAIN Ephedrine Sulfate (Ephedrine Sulfate 50 Mg/1 Ml Inj) 10 mg IV Q2M PRN PRN Reason: Hypotension Fentanyl (Fentanyl 100 Mcg/2 Ml Inj) 100 mcg IV Q2H PRN PRN Reason: Pain,Severe (7-10) LABOR PAIN Oxytocin/Sodium Chloride (Pitocin/Ns 30 Unit/500ml) 30 units in 500 mls @ 2 mls/hr IV TITR ELVIN; Protocol Lactated Ringer's (Lactated Ringers) 1,000 mls @ 125 mls/hr IV DIRECT ELVIN Oxytocin/Sodium Chloride (Pitocin/Ns 30 Unit/500ml) 30 units in 500 mls @ 40 mls/hr IV TITR ELVIN; Protocol Mineral Oil (Mineral Oil 30 Ml Oral Liqd) 30 ml PO QHS PRN PRN Reason: Constipation Terbutaline Sulfate (Terbutaline 1 Mg/1 Ml Inj) 0.25 mg SUB-Q ONCE PRN PRN Reason: Hyperstimulation/Hypertonicity Review of Systems All systems: negative Eyes: deferred Ears, nose, mouth and throat: deferred Breasts: normal Genitourinary: normal appearance Rectal Exam: deferred - Vital Signs Vital signs: Vital Signs Temp Pulse Resp BP Pulse Ox 98.9 F 87 18 150/96 99 11/18/20 22:30 11/18/20 22:30 11/18/20 22:30 11/18/20 22:30 11/18/20 22:30 Temp Pulse Resp BP Pulse Ox 98.9 F 80 18 150/76 99 11/18/20 22:30 11/18/20 23:06 11/18/20 22:30 11/18/20 23:06 11/18/20 23:05 - Physical Exam Breasts: Positive: normal Abdomen: Positive: normal appearance, soft, normal bowel sounds, other (gravid) Genitourinary (Female): Positive: normal external genitalia, normal perenium Vulva: both: normal Vagina: Positive: normal moisture Uterus: Positive: enlarged, normal contour, other (gravid) Adnexa: both: normal Anus/Rectum: Positive: normal perianal skin Extremities: Positive: normal - Obstetrical FHR: category 1 Uterine Contraction Monitor Mode: External Cervical Dilatation: 5 Cervical Effacement Percentage: 70 station: -3 Uterine Contraction Pattern: Absent Uterine Tone Measurement Phase: Resting Results All other labs normal. Assessment and Plan A: IUP@ 38.4 wks AMA HSV2 CHTN, Fibroids Polyhydramnios, RH neg Sciatica Unilateral hydrocele p: Admit to L&D for Pitocin augmentation PIH labs Continuous monitoring Pain med/Epidural prn Offer Rhogam pp Notify NICU Anticipate - Patient Problems (1) Supervision of normal IUP (intrauterine ) in multigravida Current Visit: Yes Status: Acute
[2020-11-18 23:41] LABS: Alanine Aminotransferase 10 units/L (7-56)
[2020-11-18 23:42] LABS: Hemoglobin 11.4 gm/dl (10.1-14.3); Mean Corpuscular HGB Conc 35 % (30-34); Mean Corpuscular Volume 96 fl (79-97); Platelet Count 163 K/mm3 (140-440); Red Blood Count 3.46 M/mm3 (3.65-5.03); Red Cell Distribution Width 15.1 % (13.2-15.2)
[2020-11-18] MEDS: LACTATED RINGERS 1,000 ML IV SCH (23:46)
[2020-11-19] MEDS: OXYTOCIN DRIP 30 UNITS/500 ML BAG IV SCH (01:18)
[2020-11-19 01:24] LABS: Uric Acid 5.1 mg/dL (3.5-7.6)
[2020-11-19] MEDS ORDERED: hydrALAZINE 20 MG/1 ML INJ IV SCH (08:00)
--- NOTE | 2020-11-19 08:17 | Progress Note ---
Subjective - Subjective Date of service: 11/19/20 Interval history: Bp>160/110, plan for oral labetalol and MGSO4 asymptomatic FHT 130 baseline,moderate variability Cervix 5cm/80%/-3 Magna: irregular Plan for increased oxytocin per protocol MGSO4 CFM Maternal/ well being reassuring overall Mariza Choi MD Objective - Vital Signs Vital Signs: Vital Signs - 12hr 11/18/20 11/18/20 11/18/20 22:30 22:34 22:35 Temperature 98.9 F Pulse Rate 87 82 94 H Respiratory 18 Rate Blood Pressure 150/96 Blood Pressure 150/96 [Right] O2 Sat by Pulse 99 0 L Oximetry 11/18/20 11/18/20 11/18/20 22:40 22:45 22:50 Temperature Pulse Rate 92 H 94 H 102 H Respiratory Rate Blood Pressure Blood Pressure [Right] O2 Sat by Pulse 98 98 100 Oximetry 11/18/20 11/18/20 11/18/20 22:55 23:00 23:05 Temperature Pulse Rate 95 H 97 H 93 H Respiratory Rate Blood Pressure Blood Pressure [Right] O2 Sat by Pulse 100 98 99 Oximetry 11/18/20 11/18/20 11/18/20 23:06 23:10 23:15 Temperature Pulse Rate 80 88 94 H Respiratory Rate Blood Pressure 150/76 Blood Pressure [Right] O2 Sat by Pulse 99 99 Oximetry 11/18/20 11/18/20 11/18/20 23:20 23:25 23:30 Temperature Pulse Rate 85 86 80 Respiratory Rate Blood Pressure Blood Pressure [Right] O2 Sat by Pulse 98 99 99 Oximetry 11/19/20 11/19/20 11/19/20 00:06 00:36 01:05 Temperature Pulse Rate 83 88 88 Respiratory Rate Blood Pressure 134/70 172/94 164/90 Blood Pressure [Right] O2 Sat by Pulse Oximetry 11/19/20 11/19/20 11/19/20 01:36 01:41 01:46 Temperature Pulse Rate 79 79 85 Respiratory Rate Blood Pressure Blood Pressure [Right] O2 Sat by Pulse 100 100 99 Oximetry 11/19/20 11/19/20 11/19/20 01:51 01:56 02:01 Temperature Pulse Rate 78 81 80 Respiratory Rate Blood Pressure Blood Pressure [Right] O2 Sat by Pulse 98 99 100 Oximetry 11/19/20 11/19/20 11/19/20 02:05 02:06 02:11 Temperature Pulse Rate 77 82 81 Respiratory Rate Blood Pressure 118/64 Blood Pressure [Right] O2 Sat by Pulse 99 96 Oximetry 11/19/20 11/19/20 11/19/20 02:12 02:16 02:21 Temperature Pulse Rate 83 100 H 80 Respiratory Rate Blood Pressure Blood Pressure [Right] O2 Sat by Pulse 94 92 100 Oximetry 11/19/20 11/19/20 11/19/20 02:26 02:31 02:34 Temperature Pulse Rate 88 83 89 Respiratory Rate Blood Pressure Blood Pressure [Right] O2 Sat by Pulse 100 100 84 Oximetry 11/19/20 11/19/20 11/19/20 02:35 02:36 02:39 Temperature Pulse Rate 86 88 82 Respiratory Rate Blood Pressure 131/63 Blood Pressure [Right] O2 Sat by Pulse 95 0 L Oximetry 11/19/20 11/19/20 11/19/20 02:41 02:46 02:51 Temperature Pulse Rate 78 80 82 Respiratory Rate Blood Pressure Blood Pressure [Right] O2 Sat by Pulse 100 100 100 Oximetry 11/19/20 11/19/20 11/19/20 02:56 03:01 03:05 Temperature Pulse Rate 91 H 93 H 80 Respiratory Rate Blood Pressure 128/71 Blood Pressure [Right] O2 Sat by Pulse 100 100 Oximetry 11/19/20 11/19/20 11/19/20 03:06 03:11 03:16 Temperature Pulse Rate 86 74 80 Respiratory Rate Blood Pressure Blood Pressure [Right] O2 Sat by Pulse 100 99 99 Oximetry 11/19/20 11/19/20 11/19/20 03:21 03:26 03:31 Temperature Pulse Rate 79 79 83 Respiratory Rate Blood Pressure Blood Pressure [Right] O2 Sat by Pulse 99 99 98 Oximetry 11/19/20 11/19/20 11/19/20 03:35 03:36 03:41 Temperature Pulse Rate 78 87 86 Respiratory Rate Blood Pressure 150/80 Blood Pressure [Right] O2 Sat by Pulse 98 97 Oximetry 11/19/20 11/19/20 11/19/20 03:46 03:51 03:56 Temperature Pulse Rate 85 84 82 Respiratory Rate Blood Pressure Blood Pressure [Right] O2 Sat by Pulse 97 98 97 Oximetry 11/19/20 11/19/20 11/19/20 04:01 04:05 04:06 Temperature Pulse Rate 82 74 88 Respiratory Rate Blood Pressure 158/84 Blood Pressure [Right] O2 Sat by Pulse 96 94 98 Oximetry 11/19/20 11/19/20 11/19/20 04:11 04:16 04:21 Temperature Pulse Rate 89 88 90 Respiratory Rate Blood Pressure Blood Pressure [Right] O2 Sat by Pulse 96 96 96 Oximetry 11/19/20 11/19/20 11/19/20 04:26 04:31 04:35 Temperature Pulse Rate 95 H 91 H 91 H Respiratory Rate Blood Pressure 147/91 Blood Pressure [Right] O2 Sat by Pulse 96 96 Oximetry 11/19/20 11/19/20 11/19/20 04:36 04:41 04:46 Temperature Pulse Rate 94 H 102 H 96 H Respiratory Rate Blood Pressure Blood Pressure [Right] O2 Sat by Pulse 98 98 98 Oximetry 11/19/20 11/19/20 11/19/20 04:51 04:56 05:00 Temperature Pulse Rate 88 85 79 Respiratory Rate Blood Pressure Blood Pressure [Right] O2 Sat by Pulse 100 100 94 Oximetry 11/19/20 11/19/20 11/19/20 05:01 05:12 05:17 Temperature Pulse Rate 78 104 H 84 Respiratory Rate Blood Pressure Blood Pressure [Right] O2 Sat by Pulse 95 99 99 Oximetry 11/19/20 11/19/20 11/19/20 05:22 05:27 05:32 Temperature Pulse Rate 80 85 81 Respiratory Rate Blood Pressure Blood Pressure [Right] O2 Sat by Pulse 100 100 100 Oximetry 11/19/20 11/19/20 11/19/20 05:36 05:37 05:42 Temperature Pulse Rate 77 80 78 Respiratory Rate Blood Pressure 144/94 Blood Pressure [Right] O2 Sat by Pulse 99 100 Oximetry 11/19/20 11/19/20 11/19/20 05:47 05:52 05:57 Temperature Pulse Rate 82 77 85 Respiratory Rate Blood Pressure Blood Pressure [Right] O2 Sat by Pulse 100 100 100 Oximetry 11/19/20 11/19/20 11/19/20 06:02 06:05 06:07 Temperature Pulse Rate 78 72 85 Respiratory Rate Blood Pressure 166/92 Blood Pressure [Right] O2 Sat by Pulse 99 100 Oximetry 11/19/20 11/19/20 11/19/20 06:12 06:17 06:22 Temperature Pulse Rate 89 93 H 82 Respiratory Rate Blood Pressure Blood Pressure [Right] O2 Sat by Pulse 100 99 99 Oximetry 11/19/20 11/19/20 11/19/20 06:27 06:32 06:35 Temperature Pulse Rate 80 80 77 Respiratory Rate Blood Pressure 173/105 Blood Pressure [Right] O2 Sat by Pulse 100 100 Oximetry 11/19/20 11/19/20 11/19/20 06:37 06:42 06:47 Temperature Pulse Rate 77 73 71 Respiratory Rate Blood Pressure Blood Pressure [Right] O2 Sat by Pulse 99 99 99 Oximetry 11/19/20 11/19/20 11/19/20 06:52 06:57 06:58 Temperature Pulse Rate 73 73 70 Respiratory Rate Blood Pressure 166/98 Blood Pressure [Right] O2 Sat by Pulse 99 99 Oximetry 11/19/20 11/19/20 11/19/20 07:02 07:05 07:07 Temperature Pulse Rate 74 68 73 Respiratory Rate Blood Pressure 161/94 Blood Pressure [Right] O2 Sat by Pulse 100 99 Oximetry 11/19/20 11/19/20 11/19/20 07:12 07:17 07:22 Temperature Pulse Rate 76 77 72 Respiratory Rate Blood Pressure Blood Pressure [Right] O2 Sat by Pulse 99 99 99 Oximetry 11/19/20 11/19/20 11/19/20 07:27 07:32 07:36 Temperature Pulse Rate 84 74 75 Respiratory Rate Blood Pressure 169/93 Blood Pressure [Right] O2 Sat by Pulse 100 99 Oximetry 11/19/20 11/19/20 11/19/20 07:37 07:42 07:44 Temperature Pulse Rate 76 78 69 Respiratory Rate Blood Pressure 160/91 Blood Pressure [Right] O2 Sat by Pulse 99 99 Oximetry 11/19/20 11/19/20 11/19/20 07:47 07:49 07:52 Temperature Pulse Rate 78 83 87 Respiratory Rate Blood Pressure Blood Pressure [Right] O2 Sat by Pulse 99 87 100 Oximetry 11/19/20 11/19/20 11/19/20 07:57 08:00 08:02 Temperature Pulse Rate 72 70 94 H Respiratory Rate Blood Pressure 170/91 Blood Pressure [Right] O2 Sat by Pulse 99 97 Oximetry 11/19/20 11/19/20 08:03 08:07 Temperature Pulse Rate 74 78 Respiratory Rate Blood Pressure 181/95 Blood Pressure [Right] O2 Sat by Pulse 90 98 Oximetry - Labs Labs: Abnormal Labs 11/18/20 23:00 RBC 3.46 L MCH 33 H MCHC 35 H Laboratory Results - last 24 hr 11/18/20 11/18/20 11/18/20 23:00 23:00 23:00 WBC 5.1 RBC 3.46 L Hgb 11.4 Hct 33.0 MCV 96 MCH 33 H MCHC 35 H RDW 15.1 Plt Count 163 Creatinine 0.7 Estimated GFR > 60 Uric Acid 5.1 AST 14 ALT 10 Lactate Dehydrogenase 163 Blood Type A NEGATIVE Antibody Screen Negative
[2020-11-19] MEDS ORDERED: MAGNESIUM SULFATE 4 GM/100 ML BAG IV ONE (08:30)
[2020-11-19] MEDS: LACTATED RINGERS 1,000 ML IV SCH (08:47)
[2020-11-19] MEDS: MAGNESIUM SULFATE 40GM/1000ML 40 GM/1,000 ML BAG IV SCH (09:23)
[2020-11-19] MEDS ORDERED: hydrALAZINE 20 MG/1 ML INJ IV PRN (13:24)
[2020-11-19] MEDS: valACYclovir 500 MG TAB PO SCH ×2 (15:44→22:11)
--- NOTE | 2020-11-19 17:02 | Event Note ---
Date: 11/19/20 SVE 780/-2.
[2020-11-19] MEDS ORDERED: OXYTOCIN 10 UNIT/1 ML INJ ONE (19:22)
--- NOTE | 2020-11-20 00:10 | Event Note ---
Date: 11/20/20 Patient's IV had come out just before shift change. IV had to be restarted by anesthesia due to difficult stick and several attempts were made. Patient now has a new IV and Pitocin and magnesium sulfate have been restarted. Patient is having contractions every 3 minutes; uterus palpates soft between contractions. SVE: 780/-2, unchanged from previous exam. Patient has refused AROM. She has refused epidural. Will continue Pitocin augmenation. Consulted with Dr. Choi re: patient's refusal of AROM and cervix unchanged. No new orders received. Continue EFM and Pitocin augmentation of labor. UOP good.
--- NOTE | 2020-11-20 06:34 | Event Note ---
Date: 11/20/20 SVE /-2. Cervix is softer and easier to reach. Pitocin is at 20 milliunits. Reassuring FHR tracing. Patient has refused AROM.
[2020-11-20] MEDS: MAGNESIUM SULFATE 40GM/1000ML 40 GM/1,000 ML BAG IV SCH (07:15)
--- NOTE | 2020-11-20 07:41 | Event Note ---
Date: 11/20/20 Patient still refuses AROM to speed labor. With contraction, cervix is 8 cm dilated, 90 percent effaced, -1 station. Reassuring FHR tracing. BPs stable. Magnesium sulfate continues. Pitocin is on 20 milliunits.
[2020-11-20] MEDS: LACTATED RINGERS 1,000 ML IV SCH ×2 (09:13→15:20)
--- NOTE | 2020-11-20 09:18 | Progress Note ---
Subjective - Subjective Date of service: 11/20/20 Interval history: Late entry AROM clear cervix 8cm oxytocin per protocol BP's WNL on MGSO4 and Labetalol CFM Expect Maternal/ well being reassuring overall Mariza Choi MD Objective - Vital Signs Vital Signs: Vital Signs - 12hr 11/19/20 11/19/20 11/19/20 21:18 21:23 21:28 Temperature Pulse Rate 93 H 89 90 Respiratory Rate Blood Pressure O2 Sat by Pulse 100 95 97 Oximetry 11/19/20 11/19/20 11/19/20 21:31 21:33 21:36 Temperature Pulse Rate 89 88 89 Respiratory Rate Blood Pressure O2 Sat by Pulse 94 95 94 Oximetry 11/19/20 11/19/20 11/19/20 21:38 21:40 21:42 Temperature Pulse Rate 86 92 H Respiratory 18 Rate Blood Pressure O2 Sat by Pulse 94 94 Oximetry 11/19/20 11/19/20 11/19/20 21:43 21:46 21:48 Temperature Pulse Rate 90 82 83 Respiratory Rate Blood Pressure 153/83 O2 Sat by Pulse 96 95 Oximetry 11/19/20 11/19/20 11/19/20 21:49 21:53 21:57 Temperature Pulse Rate 87 96 H 104 H Respiratory Rate Blood Pressure O2 Sat by Pulse 94 99 93 Oximetry 11/19/20 11/19/20 11/19/20 21:58 22:03 22:08 Temperature Pulse Rate 104 H 89 87 Respiratory Rate Blood Pressure O2 Sat by Pulse 93 94 95 Oximetry 11/19/20 11/19/20 11/19/20 22:09 22:11 22:12 Temperature Pulse Rate 89 98 H 88 Respiratory Rate Blood Pressure 170/94 170/94 O2 Sat by Pulse 84 Oximetry 11/19/20 11/19/20 11/19/20 22:13 22:16 22:18 Temperature Pulse Rate 98 H 88 86 Respiratory Rate Blood Pressure 153/79 O2 Sat by Pulse 99 99 Oximetry 11/19/20 11/19/20 11/19/20 22:23 22:28 22:33 Temperature Pulse Rate 83 86 91 H Respiratory Rate Blood Pressure O2 Sat by Pulse 99 100 98 Oximetry 11/19/20 11/19/20 11/19/20 22:38 22:43 22:46 Temperature Pulse Rate 92 H 90 82 Respiratory Rate Blood Pressure 154/86 O2 Sat by Pulse 100 99 Oximetry 11/19/20 11/19/20 11/19/20 22:48 22:53 22:58 Temperature Pulse Rate 86 89 84 Respiratory Rate Blood Pressure O2 Sat by Pulse 98 97 100 Oximetry 11/19/20 11/19/20 11/19/20 23:03 23:08 23:28 Temperature Pulse Rate 88 94 H 88 Respiratory Rate Blood Pressure 135/81 O2 Sat by Pulse 100 98 Oximetry 11/19/20 11/20/20 11/20/20 23:40 00:20 00:51 Temperature 98.6 F Pulse Rate 83 83 Respiratory 18 Rate Blood Pressure 144/86 136/75 O2 Sat by Pulse Oximetry 11/20/20 11/20/20 11/20/20 01:22 01:40 01:51 Temperature Pulse Rate 84 83 Respiratory 17 Rate Blood Pressure 132/75 153/78 O2 Sat by Pulse Oximetry 11/20/20 11/20/20 11/20/20 02:20 02:51 03:21 Temperature Pulse Rate 88 92 H 83 Respiratory Rate Blood Pressure 138/85 149/94 158/92 O2 Sat by Pulse Oximetry 11/20/20 11/20/20 11/20/20 03:40 03:50 04:21 Temperature 98.7 F Pulse Rate 75 77 Respiratory 18 Rate Blood Pressure 139/81 153/81 O2 Sat by Pulse Oximetry 11/20/20 11/20/20 11/20/20 04:51 05:20 05:40 Temperature Pulse Rate 81 75 Respiratory 16 Rate Blood Pressure 153/73 146/83 O2 Sat by Pulse Oximetry 11/20/20 11/20/20 11/20/20 05:51 06:21 06:51 Temperature Pulse Rate 82 75 75 Respiratory Rate Blood Pressure 149/64 151/69 147/66 O2 Sat by Pulse Oximetry 11/20/20 11/20/20 11/20/20 07:17 07:19 07:20 Temperature 98.4 F Pulse Rate 80 80 Respiratory 18 Rate Blood Pressure 142/88 139/87 O2 Sat by Pulse Oximetry 11/20/20 11/20/20 11/20/20 07:57 08:21 08:51 Temperature Pulse Rate 75 75 77 Respiratory Rate Blood Pressure 145/87 159/85 170/91 O2 Sat by Pulse Oximetry - Labs Labs: Abnormal Labs 0611/19/20 11/19/20 23:00 16:04 22:53 RBC 3.46 L MCH 33 H MCHC 35 H Magnesium 4.50 H 4.60 H 11/20/20 11/20/20 02:14 08:00 RBC MCH MCHC Magnesium 4.80 H 17.00 H Laboratory Results - last 24 hr 11/19/20 11/19/20 11/19/20 09:20 16:04 22:53 Magnesium 4.50 H 4.60 H Coronavirus (PCR) Negative 11/20/20 11/20/20 02:14 08:00 Magnesium 4.80 H 17.00 H Coronavirus (PCR)
--- NOTE | 2020-11-20 09:25 | Event Note ---
Date: 11/20/20 most recent Magnesium level reported as 17: MGSO4 on hold(was at 2gm/hr) NAD AAOx3 RR 16 BP 180/90: will give labetalol 20mg IVx1 dose(pt in pain) DTR's +2/4 bilaterally Plan to repeat MGSO4 level stat: will give one dose of [id number] and have Calcium Gluconate on hold. Mariza Choi MD
[2020-11-20] MEDS ORDERED: FUROSEMIDE 40 MG/4 ML INJ IV ONE (09:26)
[2020-11-20] MEDS: valACYclovir 500 MG TAB PO SCH ×2 (09:49→22:03)
[2020-11-20] MEDS ORDERED: hydrALAZINE 20 MG/1 ML INJ IV PRN (14:33)
[2020-11-20] MEDS ORDERED: hydrALAZINE 20 MG/1 ML INJ ONE (14:34)
[2020-11-20] MEDS ORDERED: NALOXONE 2 MG/2 ML INJ IV PRN (14:47)
[2020-11-20] MEDS ORDERED: NalbUPHINE 10 MG/1 ML INJ IV PRN (14:47)
[2020-11-20] MEDS ORDERED: diphenhydrAMINE 50 MG/ML VIAL IV PRN (14:47)
[2020-11-20] MEDS ORDERED: ONDANSETRON 4 MG/2 ML INJ IV PRN ×2 (14:47→17:38)
[2020-11-20] MEDS ORDERED: LACTATED RINGERS 250 ML IV SOLN IV ONE (14:47)
[2020-11-20] MEDS ORDERED: fentaNYL-BUPIV 2 MCG/ML-0.125% 200 MCG/100 ML BAG EPIDURAL SCH (15:00)
--- NOTE | 2020-11-20 15:19 | Anesthesia Consultation ---
Anesthesia Consult and Med Hx Date of service: 11/20/20 - Airway Anesthetic Teeth Evaluation: Good ROM Head & Neck: Adequate Mental/Hyoid Distance: Adequate Mallampati Class: Class II Intubation Access Assessment: Probably Good - Pulmonary Exam CTA: Yes - Cardiac Exam Cardiac Exam: RRR - Pre-Operative Health Status ASA Pre-Surgery Classification: ASA2 Proposed Anesthetic Plan: Epidural - Pulmonary Hx Smoking: No Hx Asthma: No COPD: No Hx Pneumonia: No Hx Sleep Apnea: No - Cardiovascular System Hx Hypertension: Yes (PIH with second ) Hx Heart Attack/AMI: No Hx Angina: No - Central Nervous System Hx Seizures: No Hx Psychiatric Problems: No - Gastrointestinal Hx Gastroesophageal Reflux Disease: No - Endocrine Hx Renal Disease: No Hx End Stage Renal Disease: No Hx Liver Disease: No Hx Insulin Dependent Diabetes: No Hx Non-Insulin Dependent Diabetes: No Hx Hypothyroidism: No Hx Hyperthyroidism: No - Hematic Hx Anemia: No Hx Sickle Cell Disease: No - Other Systems Hx Alcohol Use: No
[2020-11-20] MEDS: OXYTOCIN DRIP 30 UNITS/500 ML BAG IV SCH (15:20)
--- NOTE | 2020-11-20 15:23 | Progress Note ---
Labor Epidural - Labor Epidural Start Time: 15:01 Stop Time: 15:15 Performed by:: RALF SALAZAR ([facility]) Procedure: Patient is requesting epidural for labor and pain. H&P, labs were reviewed. Patient IDed, H&P reviewed, all questions and concerns were answered, and consent was signed. Timeout was performed at bedside. Patient in sitting position. Sterile prep and drape was performed. 3ml of 1% lidocaine skin wheal at L[3]- L [4]. 18-gauge nasima epidural needle was advanced to loss of resistance with air technique 8cm. Negative CSF negative blood. Epidural catheter advanced to [13] centimeters. [negative] Aspiration [negative] test dose. Sterile dressing applied. Patient tolerated procedure.
--- NOTE | 2020-11-20 15:40 | Progress Note ---
Subjective - Subjective Date of service: 11/20/20 Interval history: pt compete,zero station FHT Category 1 pt declines to push, will allow for 30 minutes passive descent CFM Expect Maternal/ well being reassuring overall Mariza Choi MD Objective - Vital Signs Vital Signs: Vital Signs - 12hr 11/20/20 11/20/20 11/20/20 03:40 03:50 04:21 Temperature 98.7 F Pulse Rate 75 77 Respiratory 18 Rate Blood Pressure 139/81 153/81 11/20/20 11/20/20 11/20/20 04:51 05:20 05:40 Temperature Pulse Rate 81 75 Respiratory 16 Rate Blood Pressure 153/73 146/83 11/20/20 11/20/20 11/20/20 05:51 06:21 06:51 Temperature Pulse Rate 82 75 75 Respiratory Rate Blood Pressure 149/64 151/69 147/66 11/20/20 11/20/20 11/20/20 07:17 07:19 07:20 Temperature 98.4 F Pulse Rate 80 80 Respiratory 18 Rate Blood Pressure 142/88 139/87 11/20/20 11/20/20 11/20/20 07:57 08:21 08:51 Temperature Pulse Rate 75 75 77 Respiratory Rate Blood Pressure 145/87 159/85 170/91 11/20/20 11/20/20 11/20/20 09:18 09:21 09:28 Temperature Pulse Rate 76 77 77 Respiratory Rate Blood Pressure 189/91 160/74 160/74 11/20/20 11/20/20 11/20/20 09:48 09:49 09:51 Temperature Pulse Rate 70 69 76 Respiratory Rate Blood Pressure 142/74 142/74 121/77 11/20/20 11/20/20 11/20/20 10:30 11:21 11:51 Temperature Pulse Rate 62 67 67 Respiratory Rate Blood Pressure 159/80 141/73 107/62 11/20/20 11/20/20 11/20/20 12:00 12:22 12:53 Temperature 97.7 F Pulse Rate 65 64 Respiratory 16 Rate Blood Pressure 144/76 139/71 11/20/20 11/20/20 11/20/20 13:21 13:44 13:49 Temperature Pulse Rate 67 72 69 Respiratory Rate Blood Pressure 164/88 172/98 189/106 11/20/20 11/20/2021 13:58 14:04 14:20 Temperature Pulse Rate 69 67 65 Respiratory Rate Blood Pressure 189/106 184/104 189/108 11/20/20 11/20/20 11/20/20 14:22 14:34 14:39 Temperature Pulse Rate 64 69 69 Respiratory Rate Blood Pressure 187/102 178/74 178/74 11/20/20 11/20/20 11/20/20 14:49 15:13 15:16 Temperature Pulse Rate 69 75 76 Respiratory Rate Blood Pressure 158/75 157/81 161/74 11/20/20 11/20/20 11/20/20 15:19 15:22 15:24 Temperature Pulse Rate 71 64 73 Respiratory Rate Blood Pressure 159/74 161/87 148/86 11/20/20 11/20/20 11/20/20 15:26 15:28 15:30 Temperature Pulse Rate 69 72 64 Respiratory Rate Blood Pressure 145/83 143/80 157/79 11/20/20 11/20/20 11/20/20 15:32 15:34 15:36 Temperature Pulse Rate 69 77 68 Respiratory Rate Blood Pressure 161/78 146/76 150/89 11/20/20 15:38 Temperature Pulse Rate 75 Respiratory Rate Blood Pressure 162/90 - Labs Labs: Abnormal Labs 11/18/20 11/19/20 11/19/20 23:00 16:04 22:53 RBC 3.46 L MCH 33 H MCHC 35 H Magnesium 4.50 H 4.60 H 11/20/20 11/20/20 11/20/20 02:14 08:00 09:50 RBC MCH MCHC Magnesium 4.80 H 17.00 H 4.60 H 11/20/20 14:35 RBC MCH MCHC Magnesium 3.50 H Laboratory Results - last 24 hr 11/19/20 11/19/20 11/20/20 16:04 22:53 02:14 Magnesium 4.50 H 4.60 H 4.80 H 11/20/20 11/20/20 11/20/20 08:00 09:50 14:35 Magnesium 17.00 H 4.60 H 3.50 H
[2020-11-20] MEDS ORDERED: miSOPROStol 200 MCG TAB PR ONE (17:00)
[2020-11-20] MEDS ORDERED: miSOPROStol 200 MCG TAB ONE (17:06)
[2020-11-20] MEDS ORDERED: METHYLERGONOVINE MALEATE 0.2 MG/ML VIAL IM ONE (17:06)
[2020-11-20] MEDS ORDERED: CARBOPROST TROMETHAMINE 250 MCG/1 ML INJ IM ONE ×3 (17:06→17:15)
[2020-11-20] MEDS ORDERED: OXYTOCIN 10 UNIT/1 ML INJ ONE (17:08)
[2020-11-20] MEDS ORDERED: OXYTOCIN 10 UNIT/1 ML INJ IM ONE (17:09)
[2020-11-20] MEDS ORDERED: SODIUM CHLORIDE 0.9% 500 ML 500 ML IV NR ×2 (17:12→17:35)
[2020-11-20] MEDS ORDERED: PROMETHAZINE 25 MG RECT SUPP PR PRN (17:38)
[2020-11-20] MEDS ORDERED: LANOLIN/ZINC/DIMETHICONE (LANSINOH) 7 GM TP PRN (17:38)
[2020-11-20] MEDS ORDERED: ACETAMINOPHEN 325 MG TAB PO PRN (17:38)
[2020-11-20] MEDS ORDERED: WITCH HAZEL/ GLYCERIN PAD TP PRN (17:38)
[2020-11-20] MEDS ORDERED: HYDROcodone/ACETAMINOPHEN 5-325 MG TAB PO PRN (17:38)
[2020-11-20] MEDS ORDERED: KETOROLAC 30 MG/1 ML INJ IV PRN (17:38)
[2020-11-20] MEDS ORDERED: CARBOPROST TROMETHAMINE 250 MCG/1 ML INJ IM PRN (17:38)
[2020-11-20] MEDS ORDERED: PROMETHAZINE 25 MG TAB PO PRN (17:38)
[2020-11-20] MEDS ORDERED: diphenhydrAMINE 25 MG CAP PO PRN (17:38)
[2020-11-20] MEDS ORDERED: MAGNESIUM HYDROXIDE (MOM) ORAL LIQD UDC PO PRN (17:38)
[2020-11-20] MEDS ORDERED: oxyCODONE /ACETAMINOPHEN 5-325MG TAB PO PRN (17:38)
[2020-11-20] MEDS: LOPERAMIDE 2 MG CAP PO PRN ×2 (17:48→17:51)
--- NOTE | 2020-11-20 17:55 | Procedure Note ---
OB Delivery Note - Delivery Date of Delivery: 11/20/20 Surgeon: JUSTIN GRACE Estimated blood loss: other (1700ml(weight of total EBL pending)) - Vaginal Delivery position: OA Intrapartum events: hemorrhage Delivery induction: oxytocin Delivery augmentation: rupture of membranes Delivery monitor: external FHT, external uterine Route of delivery: Indicators for instrumentation: maternal exhaustion Delivery placenta: spontaneous Delivery cord: 3 umbilical vessels Episiotomy: none Delivery laceration: none Delivery comments: Patient pushed to delivery a viable male over an intact perineum with weight 3284gms and 8/9. No nuchal cord, position JEWELS. Uncomplicated delivery of the anterior shoulder. Baby placed on maternal abdomen, delayed cord clamping. Cord clamped and cut by FOB, cord blood obtained. An intact placenta with three vessel cord delivered spontaneously. Inspection of the perineum,vaginal and cervix revealed intact anatomy. Firm fundus: 300ml EBL for delivery. All sponge, needle and instrument counts correctx2 I was called back to the room for immediate PP hemorrhage Bimanual massage revealed lower uterine atony. Brisk bleeding cervix inspected-no lacerations Cytotec 800mch given ME Hemabate 250mcg IMx2 doses Oxytocin 10 units given IM Oxytocin infusing through IV fluids Second large bore IV placed immediately with 1 liter bolus NS given stat 2 units of PRBC's ordered stat BP 140/80, P 88, pt AAOx3 Atony responded to medication and bimanual massage Stat H/H sent, will transfuse for Hb<9, tachycardia or any untoward symptoms. Pt hemodynamically stable at the completion of the delivery. Total EBL 1700ml. - A at 1 minute: 8 at 5 minutes: 9 Infant Gender: Male (3284gms)
[2020-11-20 19:06] LABS: Basophils % (Auto) 0.1 % (0.0-1.8); Eosinophils % (Auto) 0.1 % (0.0-4.3); Hematocrit 32.8 % (30.3-42.9); Hemoglobin 11.2 gm/dl (10.1-14.3); Lymphocytes # (Auto) 0.4 K/mm3 (1.2-5.4); Lymphocytes % (Auto) 6.7 % (13.4-35.0); Mean Corpuscular HGB Conc 34 % (30-34); Mean Corpuscular Volume 96 fl (79-97); Monocytes # (Auto) 0.3 K/mm3 (0.0-0.8); Monocytes % (Auto) 4.9 % (0.0-7.3); Platelet Count 162 K/mm3 (140-440); Red Cell Distribution Width 15.7 % (13.2-15.2)
[2020-11-20] MEDS: IBUPROFEN 600 MG TAB PO SCH (22:03)
[2020-11-20 23:53] LABS: Bacteria,Urine 1+ /HPF (Negative); Bilirubin,Urine NEG (Negative); Blood,Urine MOD (Negative); Color,Urine Yellow (Yellow); Mucus,Urine FEW /HPF; Protein,Urine <15 mg/dL mg/dL (Negative); Urobilinogen,Urine < 2.0 mg/dL (<2.0)
[2020-11-21] MEDS: LACTATED RINGERS 1,000 ML IV SCH (07:27)
[2020-11-21] MEDS: IBUPROFEN 600 MG TAB PO SCH ×3 (07:53→22:33)
[2020-11-21 08:18] LABS: Hematocrit 22.1 % (30.3-42.9); Hemoglobin 7.8 gm/dl (10.1-14.3)
--- NOTE | 2020-11-21 09:02 | Progress Note ---
Assessment and Plan A: day 1 S/P . Anemia, s/p hemorrhage (repeat H&H pending). Preeclampsia with severe features; blood pressures stable. No longer receiving magnesium sulfate. P: Supplement with iron. Await H&H results. Transfer to [facility] if stable. Subjective - Subjective Date of service: 11/21/20 Principal diagnosis: day 1 S/P ; s/p hemorrhage; severe preeclampsia Interval history: Patient denies dizziness. Has not yet been out of bed to ambulate. Reports small amount of lochia. radiographic technologist is drawing repeat H/H now. H/H earlier this mornin.8/22.1. Patient reports: appetite normal, pain well controlled, flatus, no nauseated : doing well Objective - Vital Signs Latest vital signs: Vital Signs Temp Pulse Resp BP BP Pulse Ox 11/21/20 08:48 86 136/62 11/21/20 07:48 85 105/55 11/21/20 07:46 98.1 F 96 H 18 105/55 100 11/21/20 07:16 94 H 106/52 11/21/20 06:46 95 H 127/61 11/21/20 06:16 82 117/58 11/21/20 05:46 93 H 114/59 11/21/20 05:16 90 117/59 11/21/20 04:46 88 121/62 11/21/20 04:16 85 119/57 11/21/20 03:46 76 124/61 11/21/20 03:16 79 122/56 11/21/20 02:46 84 118/68 11/21/20 02:44 98.4 F 17 11/21/20 02:16 79 119/55 11/21/20 01:46 82 121/61 11/21/20 01:16 81 117/59 11/21/20 00:46 87 116/56 11/21/20 00:30 98.8 F 83 16 11/21/20 00:29 82 133/62 11/21/20 00:16 82 97/54 11/20/20 23:46 78 116/65 11/20/20 23:16 86 119/59 11/20/20 22:46 83 110/58 11/20/20 22:16 93 H 131/65 06/05/21 22:02 85 140/77 0605 21:46 83 139/77 05 20:46 75 131/74 0605 20:16 85 145/74 05 19:46 80 121/74 05/ 19:22 97.4 F L 17 11/20/20 19:15 74 149/71 05 19:10 75 135/65 05 19:05 75 150/69 05 18:56 78 134/82 0605 18:51 74 144/81 11/20/20 18:46 75 138/64 05 18:41 85 152/80 05 18:36 81 133/63 05 18:30 78 144/83 05 18:25 85 142/80 11/20/20 18:24 78 145/78 05 18:16 82 152/65 05 18:12 84 156/73 05 18:06 88 135/78 05 18:01 89 150/87 11/20/20 17:55 90 135/84 05 17:50 88 133/84 05 17:45 93 H 127/81 05 17:41 90 134/71 05 17:35 86 149/76 11/20/20 17:30 88 139/80 05 17:27 83 151/81 05 17:25 89 143/80 05 17:23 81 146/79 06/05 17:21 83 133/62 05 17:19 90 134/60 /05 17:17 79 136/68 /05/21 16:57 76 168/77 06/05 16:55 75 196/123 05 16:26 70 189/92 05 16:12 69 143/67 05/ 15:54 67 155/76 06/05/21 15:52 75 127/67 05/21 15:50 70 134/69 06/05/21 15:48 73 109/71 05 15:46 70 139/70 06/05/21 15:44 65 135/70 11/20/20 15:42 72 151/76 11/20/20 15:40 67 133/77 11/20/20 15:38 75 162/90 11/20/20 15:36 68 150/89 11/20/20 15:34 77 146/76 11/20/20 15:32 69 161/78 11/20/20 15:30 64 157/79 11/20/20 15:28 72 143/80 11/20/20 15:26 69 145/83 11/20/20 15:24 73 148/86 11/20/20 15:22 64 161/87 11/20/20 15:19 71 159/74 11/20/20 15:16 76 161/74 11/20/20 15:13 75 157/81 11/20/20 14:49 69 158/75 11/20/20 14:39 69 178/74 11/20/20 14:34 69 178/74 11/20/20 14:22 64 187/102 11/20/20 14:20 65 189/108 11/20/20 14:04 67 184/104 11/20/20 13:58 69 189/106 11/20/20 13:49 69 189/106 11/20/20 13:44 72 172/98 11/20/20 13:21 67 164/88 11/20/20 12:53 64 139/71 11/20/20 12:22 65 144/76 11/20/20 12:00 97.7 F 16 11/20/20 11:51 67 107/62 11/20/20 11:21 67 141/73 11/20/20 10:30 62 159/80 11/20/20 09:51 76 121/77 11/20/20 09:49 69 142/74 11/20/20 09:48 70 142/74 11/20/20 09:28 77 160/74 11/20/20 09:21 77 160/74 11/20/20 09:18 76 189/91 Intake and Output 11/20/20 11/21/20 11/21/20 23:59 07:59 15:59 Intake Total 77.500 1000 Output Total 700 600 350 Balance -622.500 400 -350 Intake: IV 77.500 1000 Lactated Ringers 1,000 ml 1000 @ 125 mls/hr IV DIRECT ELVIN Rx#:[id number] MAGNESIUM SULFATE 40GM/ 77.500 1000ML 40 gm In 1,000 ml @ 2 GM/HR 50 mls/hr IV DIRECT ELVIN Rx#:[id number] Output: Urine 700 600 350 Indwelling Catheter 700 600 350 Other: Total, Output Amount 300 300 350 # Bowel Movements 3 - Exam Cardiovascular: Present: Regular rate Lungs: Present: Clear to auscultation Abdomen: Present: normal appearance, soft. Absent: distention, tenderness, guarding, rigidity Uterus: Present: normal, firm, fundal height below umbilicus. Absent: bogginess, tenderness Extremities: Absent: tenderness - Labs Labs: Abnormal lab results 11/18/20 11/20/20 11/20/20 Range/Units 23:00 09:50 14:35 RBC (3.65-5.03) M/mm3 Hgb (10.1-14.3) gm/dl Hct (30.3-42.9) % MCH (28-32) pg RDW (13.2-15.2) % Lymph % (Auto) (13.4-35.0) % Lymph # (Auto) (1.2-5.4) K/mm3 Seg Neutrophils % (40.0-70.0) % Magnesium 4.60 H 3.50 H (1.7-2.3) mg/dL Urine WBC (Auto) (0.0-6.0) /HPF Crossmatch See Detail 11/20/20 11/20/20 11/20/20 Range/Units 17:30 20:36 23:25 RBC 3.40 L (3.65-5.03) M/mm3 Hgb (10.1-14.3) gm/dl Hct (30.3-42.9) % MCH 33 H (28-32) pg RDW 15.7 H (13.2-15.2) % Lymph % (Auto) 6.7 L (13.4-35.0) % Lymph # (Auto) 0.4 L (1.2-5.4) K/mm3 Seg Neutrophils % 88.2 H (40.0-70.0) % Magnesium 2.80 H (1.7-2.3) mg/dL Urine WBC (Auto) 9.0 H (0.0-6.0) /HPF Crossmatch 11/21/20 Range/Units 07:52 RBC (3.65-5.03) M/mm3 Hgb 7.8 L D (10.1-14.3) gm/dl Hct 22.1 L D (30.3-42.9) % MCH (28-32) pg RDW (13.2-15.2) % Lymph % (Auto) (13.4-35.0) % Lymph # (Auto) (1.2-5.4) K/mm3 Seg Neutrophils % (40.0-70.0) % Magnesium (1.7-2.3) mg/dL Urine WBC (Auto) (0.0-6.0) /HPF Crossmatch
--- NOTE | 2020-11-21 09:47 | Post Anesthesia Evaluation ---
- Post Anesthesia Evaluation Patient Participated: Yes Airway Patent: Yes Stable Respiratory Function: Yes Nausea/Vomiting: No Temp > 96.8F: Yes Pain Manageable: Yes Adequeate Hydration: Yes Anesthesia Complications: No Block Receding Appropriately: Yes Patient on Ventilator: No
[2020-11-21] MEDS ORDERED: SODIUM CHLORIDE 0.9% 500 ML 500 ML IV SCH (10:00)
[2020-11-21] MEDS: valACYclovir 500 MG TAB PO SCH ×2 (10:00→22:33)
[2020-11-21] MEDS ORDERED: SIMETHICONE 80 MG CHEW TAB PO PRN (10:48)
[2020-11-21 15:47] LABS: Hematocrit 25.4 % (30.3-42.9); Hemoglobin 8.7 gm/dl (10.1-14.3)
[2020-11-21] MEDS: FERROUS SULFATE 325 MG TAB PO SCH ×2 (17:07→22:39)
--- NOTE | 2020-11-22 09:32 | Progress Note ---
Assessment and Plan s/p . doing well. - Patient Problems (1) Supervision of normal IUP (intrauterine ) in multigravida Current Visit: Yes Status: Acute (2) Abnormal stress test Current Visit: No Status: Acute (3) Accelerated hypertension Current Visit: No Status: Acute (4) DVT prophylaxis Current Visit: No Status: Acute (5) Health care maintenance Current Visit: No Status: Acute (6) Hypertensive urgency Current Visit: No Status: Acute (7) Left arm pain Current Visit: No Status: Acute Subjective - Subjective Date of service: 11/22/20 Principal diagnosis: day 1 S/P ; s/p hemorrhage; severe preeclampsia Patient reports: appetite normal [place]: doing well Objective - Vital Signs Latest vital signs: Vital Signs Temp Pulse Resp BP BP Pulse Ox 11/22/20 08:19 99.2 F 87 18 125/74 97 11/22/20 04:17 98.4 F 88 18 112/61 99 11/22/20 01:12 99.3 F 91 H 18 129/72 99 11/21/20 22:34 135/79 11/21/20 20:45 99.3 F 97 H 18 130/79 98 11/21/20 17:09 99.0 F 90 16 111/63 98 11/21/20 14:24 99.1 F 87 16 118/70 100 11/21/20 12:27 98.9 F 89 16 108/57 108/57 11/21/20 11:59 98.3 F 97 H 18 99 11/21/20 11:48 99 H 121/73 11/21/20 11:35 90 110/58 11/21/20 11:33 98.8 F 87 18 110/58 100 11/21/20 10:58 97.9 F 84 16 104/57 104/57 100 11/21/20 10:48 85 108/56 11/21/20 10:33 89 113/54 11/21/20 10:32 99 F 100 H 16 113/54 100 11/21/20 10:15 98.8 F 92 H 20 129/64 129/64 100 11/21/20 10:11 90 128/66 11/21/20 10:10 97.7 F 100 H 18 128/66 100 11/21/20 10:04 101 H 133/65 11/21/20 10:00 98.2 F 103 H 18 133/65 11/21/20 09:59 97 H 121/58 11/21/20 09:51 98.9 F 97 H 18 121/58 121/58 11/21/20 09:48 95 H 120/57 Intake and Output 11/21/20 11/22/20 11/22/20 23:59 07:59 15:59 Intake Total 600 580 Output Total 400 Balance 200 580 Intake: Oral 240 240 Intake, Free Water 360 340 Output: Urine 400 Void 400 Other: Total, Intake Amount 240 240 Total, Output Amount 400 # Voids Void 1 2 - Exam Abdomen: Present: normal appearance, soft Extremities: Present: normal Incision: Present: normal, dry, intact - Labs Labs: Abnormal lab results 11/18/20 11/21/20 Range/Units 23:00 15:31 Hgb 8.7 L (10.1-14.3) gm/dl Hct 25.4 L (30.3-42.9) % Crossmatch See Detail
--- NOTE | 2020-11-22 09:38 | Discharge Summary ---
Providers - Providers Date of Admission: 11/18/20 21:45 Attending physician: AIDAN JOHNSON Primary care physician: AIDAN JOHNSON Hospitalization Delivery: Episiotomy: none Laceration: none Other procedures: none complications: none Discharge diagnosis: IUP at term delivered, other (pih on labetalol.) Hospital course: benign Disposition: DC-01 TO HOME OR SELFCARE - Discharge Diagnoses (1) Supervision of normal IUP (intrauterine ) in multigravida Status: Acute (2) Abnormal stress test Status: Acute (3) Accelerated hypertension Status: Acute (4) DVT prophylaxis Status: Acute (5) Health care maintenance Status: Acute (6) Hypertensive urgency Status: Acute (7) Left arm pain Status: Acute (8) Amaurosis fugax Status: Acute Plan - Provider Discharge Summary Additional instructions: [] Smoking cessation referral if applicable(refer to patient education folder for contact #) [] Refer to [facility]'s [facility] Booklet Call your doctor immediately for: * Fever > 100.5 * Heavy vaginal bleeding ( >1 pad per hour) * Severe persistent headache * Shortness of breath * Reddened, hot, painful area to leg or breast * Drainage or odor from incision. * Keep incision clean and dry at all times and follow doctor's instructions regarding bathing/showering - Follow up plan Follow up: AIDAN JOHNSON MD [Primary Care Provider] - 7 Days
[2020-11-22] MEDS: valACYclovir 500 MG TAB PO SCH (10:35)
[2020-11-22 12:16] VITALS: BP 142/78
== END 2020-11-22 16:45 | disposition home or self-care (01) | DRG 806 ==
LOC: LD 21:45 → OB 11-21 13:44
PROVIDERS: ADMIT Obstetrics & Gynecology; ATTEND Obstetrics & Gynecology
PROC: 10E0XZZ Delivery of Products of Conception, External Approach (ICD-10-PCS; principal; 2020-11-20)
PROC: 3E0R3BZ Introduction of Anesthetic Agent into Spinal Canal, Percutaneous Approach (ICD-10-PCS; 2020-11-20)
PROC: 00HU33Z Insertion of Infusion Device into Spinal Canal, Percutaneous Approach (ICD-10-PCS; 2020-11-20)
PROC: 3E033VJ Introduction of Other Hormone into Peripheral Vein, Percutaneous Approach (ICD-10-PCS; 2020-11-20)
PROC: 10907ZC Drainage of Amniotic Fluid, Therapeutic from Products of Conception, Via Natural or Artificial Opening (ICD-10-PCS; 2020-11-20)
DX: O10.92 Unspecified pre-existing hypertension complicating childbirth (principal); O72.1 Other immediate postpartum hemorrhage; Z37.0 Single live birth; O98.32 Other infections with a predominantly sexual mode of transmission complicating childbirth; G45.3 Amaurosis fugax; I16.0 Hypertensive urgency; Z20.822 Contact with and (suspected) exposure to COVID-19; A60.09 Herpesviral infection of other urogenital tract; O40.9XX0 Polyhydramnios, unspecified trimester, not applicable or unspecified; Z3A.38 38 weeks gestation of pregnancy; Z82.49 Family history of ischemic heart disease and other diseases of the circulatory system; Z80.8 Family history of malignant neoplasm of other organs or systems
CPT/HCPCS: 36415; 81001; 82565; 83615; 83735; 84450; 84460; 84550; 85014; 85018; 85025; 85027; 85461; 86850; 86900; 86901; 86920; 87086; 99211; G0378; G0463; J0360; J0595; J1940; J2590; J2790; J3475; J7040; J7120; P9016; U0003

== ENCOUNTER 2021-01-11 07:09 | Day surgery (SDC) | payer BC, MEDICAID ==
[2021-01-11] MEDS ORDERED: ACETAMINOPHEN 500 MG TAB PO NR (07:47)
[2021-01-11] MEDS ORDERED: HYDROmorphone 1 MG/1 ML INJ IV PRN (07:47)
[2021-01-11] MEDS ORDERED: MAGNESIUM OXIDE 400 MG TAB PO NR (07:47)
[2021-01-11] MEDS ORDERED: ONDANSETRON 4 MG/2 ML INJ IV PRN (07:47)
--- NOTE | 2021-01-11 07:53 | Anesthesia Day of Surgery ---
Anesthesia Day of Surgery - Day of Surgery Patient Examined: Yes Patient H&P Reviewed: Yes Patient is NPO: Yes
--- NOTE | 2021-01-11 07:54 | Anesthesia Consultation ---
Anesthesia Consult and Med Hx Date of service: 01/11/21 - Airway Anesthetic Teeth Evaluation: Good ROM Head & Neck: Adequate Mental/Hyoid Distance: Adequate Mallampati Class: Class II Intubation Access Assessment: Good - Pre-Operative Health Status ASA Pre-Surgery Classification: ASA2 Proposed Anesthetic Plan: General - Pulmonary Hx Smoking: No Hx Asthma: No COPD: No Hx Pneumonia: No Hx Sleep Apnea: No (OZIEL PRE SCREEN LOW RISK) - Cardiovascular System Hx Hypertension: Yes (PIH 2011 AND PIH 2020) - Central Nervous System Hx Seizures: No Hx Psychiatric Problems: No - Gastrointestinal Hx Gastroesophageal Reflux Disease: No - Endocrine Hx Renal Disease: No Hx End Stage Renal Disease: No Hx Liver Disease: No Hx Insulin Dependent Diabetes: No Hx Non-Insulin Dependent Diabetes: No Hx Hypothyroidism: No Hx Hyperthyroidism: No - Hematic Hx Anemia: Yes Hx Sickle Cell Disease: No - Other Systems Hx Alcohol Use: No Hx Substance Use: Yes (MARIJUANA IN PAST) Hx Cancer: No
[2021-01-11] MEDS ORDERED: MIDAZOLAM 2 MG/2 ML INJ IV NR (08:00)
[2021-01-11] MEDS ORDERED: LACTATED RINGERS 1,000 ML IV SCH (08:00)
[2021-01-11] MEDS ORDERED: CELECOXIB 200 MG CAP PO NR (08:00)
[2021-01-11] MEDS ORDERED: ACETAMINOPHEN 500 MG TAB ONE (08:14)
--- NOTE | 2021-01-11 08:37 | History and Physical Report ---
History of Present Illness Date of examination: 01/11/21 Date of admission: 01/11/21 Chief complaint: desire for BTL. History of present illness: This is Dr. Leal dictating history and physical patient. Patient desires to have permanent sterilization and she has a small cyst on her labia that she wants to remove. This will be done on an outpatient basis. Past medical history includes hypertension fibroids. She has had a tonsillectomy D&C in the past. She has a history of herpes in the past. Family medical history is positive for hypertension and cancer. Social history patient is single she lives with her children. She is a 4 para 3-0-1-3 female she has got 3. No known allergies. Past History Past Surgical History: tonsillectomy, D&C [employer] History: herpes Family/Genetic History: hypertension, cancer Social history: single - Obstetrical History : 4 Medications and Allergies Allergies Allergy/AdvReac Type Severity Reaction Status Date / Time No Known Allergies Allergy Verified 01/06/20 14:31 Home Medications Medication Instructions Recorded Confirmed Last Taken Type labetaloL 200 mg PO BID 01/05/21 01/05/21 Unknown History Active Meds: Active Medications Acetaminophen (Acetaminophen 500 Mg Tab) 1,000 mg PO ONCE NR Stop: 01/11/21 10:00 Celecoxib (Celecoxib 200 Mg Cap) 400 mg PO PREOP NR Stop: 01/11/21 12:00 Hydromorphone HCl (Hydromorphone 1 Mg/1 Ml Inj) 0.25 mg IV Q10MIN PRN PRN Reason: Pain, Moderate (4-6) Stop: 01/11/21 23:00 Hydromorphone HCl (Hydromorphone 1 Mg/1 Ml Inj) 0.5 mg IV Q10MIN PRN PRN Reason: Pain , Severe (7-10) Stop: 01/11/21 23:00 Lactated Ringer's (Lactated Ringers) 1,000 mls @ 125 mls/hr IV DIRECT ELVIN Magnesium Oxide (Magnesium Oxide 400 Mg Tab) 400 mg PO ONCE NR Stop: 01/11/21 12:00 Midazolam HCl (Midazolam 2 Mg/2 Ml Inj) 2 mg IV PREOP NR Stop: 01/11/21 23:59 Ondansetron HCl (Ondansetron 4 Mg/2 Ml Inj) 4 mg IV ONCE PRN PRN Reason: Nausea And Vomiting Stop: 01/11/21 12:00 Review of Systems All systems: negative - Physical Exam Breasts: Positive: normal Cardiovascular: Regular rate, Normal S1, Normal S2 Lungs: Positive: Clear to auscultation, Normal air movement Abdomen: Positive: normal appearance, soft, normal bowel sounds. Negative: distention, tenderness Genitourinary (Female): Positive: normal external genitalia, normal perenium Vulva: both: normal Vagina: Positive: normal moisture. Negative: discharge Cervix: Negative: lesion, discharge Uterus: Positive: normal size, normal contour Adnexa: both: normal Anus/Rectum: Positive: normal perianal skin, heme negative. Negative: rectal mass, hemorrhoids Extremities: Deep Tendon Reflex Grade: Normal +2 Results All other labs normal. Assessment and Plan 1. Is a permanent sterilization. Also the patient is is has a cyst removed from her labia. Plan laparoscopic bilateral tubal ligation and removal of cyst from the labia.
[2021-01-11] MEDS ORDERED: fentaNYL 250 MCG/5 ML INJ ONE (08:50)
[2021-01-11] MEDS ORDERED: propofoL 200 MG/20 ML VIAL IV ONE (08:50)
[2021-01-11] MEDS ORDERED: ROCURONIUM 50 MG/5 ML INJ IV ONE (08:50)
[2021-01-11] MEDS ORDERED: BUPIVACAINE/PF (0.5%) 5 MG/1 ML 10 ML VIAL INFILTRATI ONE ×2 (08:55→09:04)
[2021-01-11] MEDS ORDERED: LIDOCAINE (1%) 10 MG/1 ML VIAL 20 ML MDV ONE (08:55)
[2021-01-11] MEDS ORDERED: NEOSTIGMINE 10MG/10 ML INJ MDV ONE (09:00)
[2021-01-11] MEDS ORDERED: dexAMETHasone 20 MG/5 ML VIAL ONE (09:00)
[2021-01-11] MEDS ORDERED: ONDANSETRON 4 MG/2 ML INJ ONE (09:00)
[2021-01-11] MEDS ORDERED: GLYCOPYRROLATE 0.4 MG/2 ML INJ ONE (09:00)
[2021-01-11] MEDS ORDERED: LIDOCAINE (1%) 10 MG/1 ML VIAL 20 ML MDV INFILTRATI ONE (09:04)
[2021-01-11] MEDS ORDERED: SODIUM CHLORIDE 0.9% IRR 1,500 ML BOTTLE IR ONE (09:05)
[2021-01-11] MEDS ORDERED: SUGAMMADEX SODIUM 200 MG/2 ML VIAL IV ONE (10:20)
--- NOTE | 2021-01-11 10:25 | Procedure Note ---
Date of procedure: 01/11/21 Pre-op diagnosis: multiparity, left labia minora cyst Post-op diagnosis: same Procedure: This is Dr. Navarro dictating operative report on patient. Preoperative diagnosis multiparity desire for permanent sterilization left labia minora cyst. Postoperative diagnosis same and multiple small subserosal fibroids. Procedure was laparoscopic bilateral tubal ligation using Filshie clips. And excision of the left labia minora cyst. Anesthesia General with intubation. Drains none. Estimated blood loss less than 5 cc. Findings patient was found to have a uterus with multiple small subserosal myomas in particular on the left side of the uterus and in the midline. There are approximately 3 to 4 cm in size. No adhesions. No evidence of endometriosis. Complications none. Procedure patient was taken operatory placed in supine position given general a nesthetic with intubation placed in dorsolithotomy incision in the [facility] and prepped and draped in usual manner. First we addressed attention to the left labia minora cyst which was appr oximately half a centimeter in diameter. We injected this area with 10 cc and drained with Dermabond the patient tolerated procedure well she was then returned to recovery in stable condition end of operative note on this patient. Vicryl % Xylocaine plain. Then we used Allis clamp to grasp the cyst the cyst was removed with a scalpel on its base. The cyst was sent for pathological inspection. The incision into the left labia minora was repaired with a running interlocking #2-0 Vicryl. We then placed a Hulka tenaculum on the anterior cervix speculum was removed from the vagina. Attention was directed towards the abdominal portion procedure versus skin just below the umbilicus was injected with 5 cc of half percent Marcaine plain we made a small stab incision. The Veress needle was inserted to the peritoneal cavity 2 L of carbon dioxide were used to obtain pneumoperitoneum. A 5 mm bladeless trocar was inserted into the incision with the scope inside and we could see the entrance into the abdominal cavity. Subsequently the scope was removed and the bladeless portion of the trocar was removed the scope was placed inside the incision we then did our second puncture suprapubically with 8 mm bladeless trocar after we injected the skin with 5 cc of half percent Marcaine plain and this was directed under direct visualization without trauma to the pelvic abdominal structures we took the malleolus portion of the trocar out of the trocar and the Filshie clip applicator was placed inside the sheath we then placed a Filshie clip on the isthmus portion of the right fallopian tube and and also a history of portion of the left fallopian tube this is probably adequate sterilization by myself as operating surgeon. We did noted the patient had at least 2 subserosal myomas in particular on the left side of the uterus all of the fallopian tube in the midline on the top of the uterus. See no further procedures are indicated all instruments were removed from the vagina all instruments removed from abdominal cavity of the CT scans allowed to sleep through the sheath the sheath was then removed the skin incisions were repaired with a running subcuticular 4 0 Vicryl. Anesthesia: GETA Surgeon: CODY NAVARRO Estimated blood loss: minimal Pathology: list (left labiasl cyst.) Specimen disposition: to lab Condition: stable Disposition: PACU (d/c pt outpt.)
[2021-01-11] MEDS ORDERED: HYDROcodone/ACETAMINOPHEN 5-325 MG TAB PO PRN (11:00)
[2021-01-11] MEDS: HYDROmorphone 1 MG/1 ML INJ IV PRN ×2 (11:03→11:13)
[2021-01-11] MEDS ORDERED: hydrALAZINE 20 MG/1 ML INJ ONE (12:03)
[2021-01-11] MEDS ORDERED: hydrALAZINE 20 MG/1 ML INJ IV ONE ×2 (12:06→13:00)
[2021-01-11 13:02] VITALS: BP 147/89
[2021-01-11] MEDS ORDERED: ONDANSETRON 4 MG ODT TAB PO PRN (13:25)
--- NOTE | 2021-01-11 13:49 | Post Anesthesia Evaluation ---
- Post Anesthesia Evaluation Patient Participated: Yes Airway Patent: Yes Stable Respiratory Function: Yes Nausea/Vomiting: Yes Temp > 96.8F: Yes Pain Manageable: Yes Adequeate Hydration: Yes Anesthesia Complications: No Block Receding Appropriately: Not Applicable Patient on Ventilator: Yes
--- NOTE | 2021-03-08 08:48 | Procedure Note ---
Date of procedure: 01/11/21 Pre-op diagnosis: multiparity, vulvar cyst Post-op diagnosis: same Procedure: lap btl, excision of vulvar cyst. Since then addendum to the operative report on this patient. The left vulvar cyst was removed with a scalpel and sent for pathological inspection. Incision into the left vulva was repaired with running 2-0 chromic suture. Patient minimal bleeding and tolerated procedure well. Anesthesia: GETA Surgeon: CODY NAVARRO Estimated blood loss: 50-100ml Pathology: list (vulvar cyst.) Condition: stable Disposition: PACU
== END 2021-01-11 13:50 | disposition home or self-care (01) ==
LOC: OR 07:09
DX: Z30.2 Encounter for sterilization (principal); N90.7 Vulvar cyst; Z64.1 Problems related to multiparity; I10 Essential (primary) hypertension; G43.909 Migraine, unspecified, not intractable, without status migrainosus; K21.9 Gastro-esophageal reflux disease without esophagitis; Z79.899 Other long term (current) drug therapy; Z87.440 Personal history of urinary (tract) infections; Z98.890 Other specified postprocedural states; Z80.8 Family history of malignant neoplasm of other organs or systems; Z86.2 Personal history of diseases of the blood and blood-forming organs and certain disorders involving the immune mechanism; Z96.652 Presence of left artificial knee joint
CPT/HCPCS: 11422; 58671; 81025; 88305; 88341; 88342; J0360; J1100; J1170; J2250; J2405; J2704; J2710; J3010; J7120; 88304; Q0162

== ENCOUNTER 2021-03-15 07:39 | Day surgery (SDC) | payer BC, MEDICAID ==
[2021-03-14 10:42] LABS: Hematocrit 40.4 % (30.3-42.9); Hemoglobin 13.7 gm/dl (10.1-14.3); Mean Corpuscular HGB Conc 34 % (30-34); Mean Corpuscular Volume 93 fl (79-97); Platelet Count 152 K/mm3 (140-440); Red Blood Count 4.32 M/mm3 (3.65-5.03); Red Cell Distribution Width 15.4 % (13.2-15.2)
[~2021-03-15 07:39] MED LIST: LACTATED RINGERS 1,000 ML IV SCH; MIDAZOLAM 2 MG/2 ML INJ IV NR
[2021-03-15] MEDS ORDERED: HYDROcodone/ACETAMINOPHEN 5-325 MG TAB PO PRN (08:17)
[2021-03-15] MEDS ORDERED: HYDROmorphone 1 MG/1 ML INJ IV PRN (08:17)
[2021-03-15] MEDS ORDERED: ONDANSETRON 4 MG/2 ML INJ IV PRN ×2 (08:17→13:31)
--- NOTE | 2021-03-15 08:17 | Anesthesia Day of Surgery ---
Anesthesia Day of Surgery - Day of Surgery Patient Examined: Yes Patient H&P Reviewed: Yes Patient is NPO: Yes Beta Blockers: Yes
--- NOTE | 2021-03-15 08:17 | Anesthesia Consultation ---
Anesthesia Consult and Med Hx Date of service: 03/15/21 - Airway Anesthetic Teeth Evaluation: Good ROM Head & Neck: Adequate Mental/Hyoid Distance: Adequate Mallampati Class: Class II Intubation Access Assessment: Probably Good - Pre-Operative Health Status ASA Pre-Surgery Classification: ASA2 Proposed Anesthetic Plan: General - Pulmonary Hx Smoking: No Hx Respiratory Symptoms: No - Cardiovascular System Hx Hypertension: Yes (took labetalol this morning) Hx Heart Attack/AMI: No - Central Nervous System CVA: No - Endocrine Hx Renal Disease: No Hx Liver Disease: No Hx Insulin Dependent Diabetes: No Hx Non-Insulin Dependent Diabetes: No Hx Thyroid Disease: No - Other Systems Hx Obesity: Yes (BMI 30) - Additional Comments Anesthesia Medical History Comments: No hx anesthetic complications.
--- NOTE | 2021-03-15 09:17 | History and Physical Report ---
History of Present Illness Date of examination: 03/15/21 Date of admission: 03/15/21 Chief complaint: left vulvar cyst with pain. History of present illness: 40 yo multip with hx of left vulvar cyst. the cyst was partially removed several weeks ago. her pathology report was c/w granular cyst. pt returns to remove the rest of the cyst. Past History Past Medical History: no pertinent history, hypertension Past Surgical History: other (excision of left vulvar cyst. and lap btl.) Family/Genetic History: none Social history: - Obstetrical History : 4 Medications and Allergies Allergies Allergy/AdvReac Type Severity Reaction Status Date / Time No Known Allergies Allergy Verified 01/06/20 14:31 Home Medications Medication Instructions Recorded Confirmed Last Taken Type labetaloL 200 mg PO BID 01/05/21 01/11/21 01/11/21 06:45 History Active Meds: Active Medications Hydrocodone Bitart/Acetaminophen (Hydrocodone/Acetaminophen 5-325 Mg Tab) 2 each PO ONCE PRN PRN Reason: Pain, Moderate (4-6) Stop: 03/15/21 12:00 Hydromorphone HCl (Hydromorphone 1 Mg/1 Ml Inj) 0.5 mg IV Q10MIN PRN PRN Reason: Pain , Severe (7-10) Stop: 03/15/21 12:00 Lactated Ringer's (Lactated Ringers) 1,000 mls @ 100 mls/hr IV DIRECT ELVIN Stop: 03/15/21 23:59 Midazolam HCl (Midazolam 2 Mg/2 Ml Inj) 2 mg IV PREOP NR Stop: 03/15/21 23:59 Ondansetron HCl (Ondansetron 4 Mg/2 Ml Inj) 4 mg IV ONCE PRN PRN Reason: Nausea And Vomiting Stop: 03/15/21 12:00 Review of Systems All systems: negative - Vital Signs Vital signs: Vital Signs Temp Pulse Resp BP Pulse Ox 98.2 F 58 L 18 173/110 99 03/14/21 09:00 03/14/21 09:00 03/14/21 09:00 03/14/21 09:00 03/14/21 09:00 Temp Pulse Resp BP Pulse Ox 98.2 F 58 L 18 173/110 99 03/14/21 09:00 03/14/21 09:00 03/14/21 09:00 03/14/21 09:00 03/14/21 09:00 - Physical Exam Breasts: Positive: normal Cardiovascular: Regular rate, Normal S1, Normal S2 Lungs: Positive: Clear to auscultation, Normal air movement Abdomen: Positive: normal appearance, soft, normal bowel sounds. Negative: distention, tenderness Genitourinary (Female): Positive: perineal/vulvar lesions (remnant of left vu lvar cyst.) Vulva: left: normal (remnant of left granular cyst.) Vagina: Positive: normal moisture. Negative: discharge Cervix: Negative: lesion, discharge Uterus: Positive: normal size, normal contour Adnexa: both: normal Anus/Rectum: Positive: normal perianal skin, heme negative. Negative: rectal mass, hemorrhoids Extremities: Positive: normal Deep Tendon Reflex Grade: Normal +2 Results Result Diagrams: 03/14/21 06:00 Abnormal lab results 03/14/21 Range/Units 06:00 WBC 3.5 L (4.5-11.0) K/mm3 RDW 15.4 H (13.2-15.2) % All other labs normal. Assessment and Plan remnant left vulvar cyst. plan excision.
[2021-03-15] MEDS ORDERED: propofoL 200 MG/20 ML VIAL IV ONE (09:43)
[2021-03-15] MEDS ORDERED: HYDROmorphone 1 MG/1 ML INJ ONE (09:43)
[2021-03-15] MEDS ORDERED: LIDOCAINE MPF (2%) 20 MG/1 ML VIAL 5 ML ONE (09:43)
[2021-03-15] MEDS ORDERED: ONDANSETRON 4 MG/2 ML INJ ONE ×2 (09:43→13:28)
[2021-03-15] MEDS ORDERED: dexAMETHasone 20 MG/5 ML VIAL ONE (10:18)
[2021-03-15] MEDS ORDERED: BUPIVACAINE/PF (0.5%) 5 MG/1 ML 30 ML VIAL INFILTRATI ONE ×3 (10:19→10:40)
[2021-03-15] MEDS ORDERED: SODIUM CHLORIDE 0.9% IRR 1,000 ML BOTTLE IR ONE (10:40)
[2021-03-15] MEDS ORDERED: KETOROLAC 30 MG/1 ML INJ ONE (10:49)
--- NOTE | 2021-03-15 11:02 | Procedure Note ---
Date of procedure: 03/15/21 Pre-op diagnosis: remnant left vulvar cyst, vulvar pain Post-op diagnosis: same Procedure: This is Dr. Navarro dictating operative report. Time of surgery was [address] Navarro. Preoperative diagnosis remnant left ovary cyst and vulvar pain. Postoperative diagnosis same. Procedure was removal of the remnant vulvar cyst. Estimated blood loss 10 cc or less. Complications none. Findings patient was found to have a small remnant of a left ovary cyst which you could palpate. Details of procedure. We injected her home left vulvar area with 15 cc of half percent Marcaine plain. We then used Allises to grasp the vulvar area that was involved. A scalpel was used to excise that portion of the vulvar with a included the remnant of the vulvar cyst. We used a Bovie to get hemostasis. The deep tissue was repaired using running 3 0 Vicryl. The superficial skin was repaired using running locking 3-0 Vicryl. This area was hemostatic. See no further procedures were indicated procedures were terminated the patient tolerated procedure well she was then returned to recovery room in stable condition end of operative note on this patient. Anesthesia: GETA Surgeon: CODY NAVARRO Estimated blood loss: minimal Pathology: list Specimen disposition: to lab (left vulvar cyst remnant.) Condition: stable Disposition: PACU
[2021-03-15] MEDS: hydrALAZINE 20 MG/1 ML INJ IV PRN ×2 (12:30→13:48)
--- NOTE | 2021-03-15 14:23 | Post Anesthesia Evaluation ---
- Post Anesthesia Evaluation Patient Participated: Yes Airway Patent: Yes Stable Respiratory Function: Yes Nausea/Vomiting: Yes (treated with IV antiemetics) Temp > 96.8F: Yes Pain Manageable: Yes Adequeate Hydration: Yes Anesthesia Complications: No Other Comments: Hypertensives in PACU treated with IV antihypertensives.
[2021-03-15 16:19] VITALS: BP 148/86
== END 2021-03-15 14:15 | disposition home or self-care (01) ==
LOC: OR 07:39
DX: N90.7 Vulvar cyst (principal); R10.2 Pelvic and perineal pain; I10 Essential (primary) hypertension; E66.9 Obesity, unspecified; Z79.899 Other long term (current) drug therapy; Z98.890 Other specified postprocedural states; Z20.822 Contact with and (suspected) exposure to COVID-19
CPT/HCPCS: 11422; 36415; 84703; 85027; 88305; J0360; J1100; J1170; J1885; J2250; J2405; J2704; J7120; U0003; 88304